=== PATIENT | female | born 1950 | race Caucasian/White ===

== ENCOUNTER 2020-03-07 11:14 | Inpatient (IN) | payer BC, OTHER ==
[~2020-03-07] VITALS: Ht 167.6 cm; Wt 82.5 kg
[2020-03-07] MEDS ORDERED: AZITHROMYCIN 500MG/ 250ML 250 ML IV ONE (14:45)
[2020-03-07] MEDS ORDERED: DexAMETHasone SOD PHOS 10MG/1ML VIAL INJ IV ONE (14:45)
[2020-03-07] MEDS ORDERED: REMDESIVIR PER PHARMACY 0 ML IV SCH (16:30)
[2020-03-07] MEDS ORDERED: MORPHINE SULF INJ 2 MG/ML SYRINGE 1ML IV PRN (16:30)
[2020-03-07] MEDS ORDERED: NITROGLYCERIN 0.4 MG SL TAB SL PRN (16:30)
[2020-03-07] MEDS ORDERED: diphenhdrAMINE HCL 50 MG/1 ML VL IV PRN (16:30)
[2020-03-07] MEDS: levoFLOXacin 500MG 100 ML IV SCH (16:41)
[2020-03-07] MEDS ORDERED: LACTULOSE 20Gm/30ML SOLN PO PRN (16:45)
[2020-03-07] MEDS: SODIUM CHLORIDE 0.9% 1,000 ML IV SCH (16:45)
[2020-03-07] MEDS: BUDESONIDE (INHALATION) 180 MCG IH IN SCH (20:03)
[2020-03-07 20:11] LABS: Basophils # (auto) 0 10 ^3/uL (0-0.2); Basophils % (auto) 0.2 % (0.0-2.0); Eosinophils # (auto) 0 10 ^3/uL (0-0.8); Hematocrit 41.9 % (36.0-46.0); Hemoglobin 14.5 g/dL (12.2-16.2); Lymphocytes # (auto) 0.4 10 ^3/uL (0.4-5.4); Lymphocytes % (auto) 7.2 % (10.0-50.0); Mean Corpuscular Hemoglobin 32.4 pg (28.0-32.0); Mean Corpuscular Hgb Conc. 34.7 g/dL (32.0-36.0); Mean Corpuscular Volume 93.4 fL (80.0-100.0); Monocytes # (auto) 0.3 10 ^3/uL (0-1.3); Monocytes % (auto) 6.1 % (0.0-12.0); Neutrophils # (auto) 4.6 10 ^3/uL (1.6-8.6); Neutrophils % (auto) 86.5 % (37.0-80.0); Nucleated Red Blood Cells % 0.2 %; Platelet Count (auto) 288 10^3/uL (140-450); Red Blood Cells 4.48 10^6/uL (4.0-5.20); Red Cell Distribution Width 13.2 % (11.8-14.3); White Blood Cell 5.3 10^3/uL (4.4-10.8)
[2020-03-07 20:29] LABS: INR 0.98 (0.9-1.15); Partial Thromboplastin Time 29.6 sec (23.0-31.2)
[2020-03-07 20:33] LABS: Albumin 2.9 g/dL (3.4-5.0); Anion Gap 7 (5-15); Blood Urea Nitrogen 10 mg/dL (7-18); Calcium 8.3 mg/dL (8.5-10.1); Carbon Dioxide 27 mmol/L (21-32); Chloride 100 mmol/L (98-107); Glucose 119 mg/dL (74-106); Magnesium 1.9 mg/dL (1.6-2.6); Potassium 3.8 mmol/L (3.5-5.1); Sodium 134 mmol/L (136-145)
[2020-03-07 20:38] LABS: Lactic Acid w/Reflex 2.1 mmol/L (0.4-2.0)
[2020-03-07 20:39] LABS: Alanine Aminotransferase 54 U/L (13-56); Alkaline Phosphatase 151 U/L (45-117); Aspartate Aminotransferase 53 U/L (15-37); BUN/Creatinine Ratio 13.7; Bilirubin, Total 0.2 mg/dL (0.2-1.0); GFR African American 102 mL/min; GFR Non-African American 84 mL/min; Total Protein 7.5 g/dL (6.4-8.2)
[2020-03-07] MEDS ORDERED: FAMOTIDINE 20 MG TAB PO SCH (22:00)
[2020-03-07] MEDS: FAMOTIDINE (10MG/ML) 2ML VL IV SCH (22:52)
[2020-03-07] MEDS: ENOXAPARIN SOD 40 MG/0.4 ML SYRINGE SC SCH (22:53)
[2020-03-07] MEDS ORDERED: LORazepam 2MG/ML-1ML VIAL ONE (23:05)
[2020-03-07] MEDS ORDERED: LORazepam 2MG/ML-1ML VIAL IV ONE (23:15)
[2020-03-08] MEDS: PROMETHAZINE HCL 25 MG/ML 1ML IV PRN (05:24)
[2020-03-08 05:55] LABS: Basophils # (auto) 0 10 ^3/uL (0-0.2); Basophils % (auto) 0.3 % (0.0-2.0); Eosinophils # (auto) 0 10 ^3/uL (0-0.8); Hematocrit 39.3 % (36.0-46.0); Hemoglobin 13.8 g/dL (12.2-16.2); Lymphocytes # (auto) 0.6 10 ^3/uL (0.4-5.4); Lymphocytes % (auto) 13.6 % (10.0-50.0); Mean Corpuscular Hemoglobin 33.1 pg (28.0-32.0); Mean Corpuscular Hgb Conc. 35.2 g/dL (32.0-36.0); Mean Corpuscular Volume 94.1 fL (80.0-100.0); Monocytes # (auto) 0.4 10 ^3/uL (0-1.3); Monocytes % (auto) 8.5 % (0.0-12.0); Neutrophils # (auto) 3.6 10 ^3/uL (1.6-8.6); Neutrophils % (auto) 77.6 % (37.0-80.0); Nucleated Red Blood Cells % 0.1 %; Platelet Count (auto) 298 10^3/uL (140-450); Red Blood Cells 4.17 10^6/uL (4.0-5.20); Red Cell Distribution Width 12.8 % (11.8-14.3); White Blood Cell 4.7 10^3/uL (4.4-10.8)
[2020-03-08 06:18] LABS: Albumin 2.7 g/dL (3.4-5.0); BUN/Creatinine Ratio 13.2; Bilirubin, Total 0.2 mg/dL (0.2-1.0); Calcium 8.4 mg/dL (8.5-10.1); Total Protein 6.8 g/dL (6.4-8.2)
[2020-03-08] MEDS: SODIUM CHLORIDE 0.9% 1,000 ML IV SCH (06:26)
[2020-03-08] MEDS: FAMOTIDINE (10MG/ML) 2ML VL IV SCH ×2 (09:21→23:10)
[2020-03-08] MEDS: levoFLOXacin 500MG 100 ML IV SCH (09:21)
[2020-03-08] MEDS: ASCORBIC ACID 1,000 MG TAB PO SCH (09:22)
[2020-03-08] MEDS: ZINC SULFATE 220mg CAP or TAB PO SCH (09:22)
[2020-03-08] MEDS: CHOLECALCIFEROL (VITD3) 2,000 UNIT CAP/TAB PO SCH (09:22)
[2020-03-08] MEDS: ENOXAPARIN SOD 40 MG/0.4 ML SYRINGE SC SCH ×2 (09:22→23:10)
[2020-03-08] MEDS: DexAMETHasone SOD PHOS 10MG/1ML VIAL INJ IV SCH (09:22)
[2020-03-08] MEDS: BUDESONIDE (INHALATION) 180 MCG IH IN SCH ×2 (10:00→21:04)
[2020-03-08 19:21] VITALS: BP 112/64
[2020-03-08 19:47] VITALS: BP 107/71
[2020-03-08] MEDS ORDERED: REMDESIVIR 200 MG in NS 210ml LOADING DOSE ADULT IV ONE (20:00)
[2020-03-08 20:17] VITALS: BP 114/62
[2020-03-08 21:01] VITALS: BP 95/57
[2020-03-08] MEDS: TEMAZEPAM 15 MG CAP PO PRN (23:09)
[2020-03-09] VITALS: BP 121/70
[2020-03-09 00:35] VITALS: BP 107/71
[2020-03-09 08:00] VITALS: BP 93/55
[2020-03-09 08:22] LABS: Basophils # (auto) 0 10 ^3/uL (0-0.2); Eosinophils # (auto) 0 10 ^3/uL (0-0.8); Hematocrit 39.1 % (36.0-46.0); Hemoglobin 13.6 g/dL (12.2-16.2); Lymphocytes # (auto) 0.8 10 ^3/uL (0.4-5.4); Lymphocytes % (auto) 9.2 % (10.0-50.0); Mean Corpuscular Hemoglobin 32.8 pg (28.0-32.0); Mean Corpuscular Hgb Conc. 34.9 g/dL (32.0-36.0); Mean Corpuscular Volume 93.9 fL (80.0-100.0); Monocytes # (auto) 0.6 10 ^3/uL (0-1.3); Monocytes % (auto) 7.2 % (0.0-12.0); Neutrophils # (auto) 7.1 10 ^3/uL (1.6-8.6); Neutrophils % (auto) 83.6 % (37.0-80.0); Platelet Count (auto) 359 10^3/uL (140-450); Red Blood Cells 4.16 10^6/uL (4.0-5.20); Red Cell Distribution Width 13.4 % (11.8-14.3); White Blood Cell 8.5 10^3/uL (4.4-10.8)
[2020-03-09 08:40] LABS: Albumin 2.4 g/dL (3.4-5.0); BUN/Creatinine Ratio 18.5; Bilirubin, Total 0.2 mg/dL (0.2-1.0); Calcium 8.4 mg/dL (8.5-10.1); Total Protein 6.7 g/dL (6.4-8.2)
[2020-03-09] MEDS: DexAMETHasone SOD PHOS 10MG/1ML VIAL INJ IV SCH (09:55)
[2020-03-09] MEDS: levoFLOXacin 500MG 100 ML IV SCH (09:55)
[2020-03-09] MEDS: ZINC SULFATE 220mg CAP or TAB PO SCH (09:55)
[2020-03-09] MEDS: CHOLECALCIFEROL (VITD3) 2,000 UNIT CAP/TAB PO SCH (09:56)
[2020-03-09] MEDS: PROMETHAZINE HCL 25 MG/ML 1ML IV PRN ×2 (09:56→17:51)
[2020-03-09] MEDS: ENOXAPARIN SOD 40 MG/0.4 ML SYRINGE SC SCH ×2 (09:56→21:52)
[2020-03-09] MEDS: ASCORBIC ACID 1,000 MG TAB PO SCH (09:56)
[2020-03-09] MEDS: BUDESONIDE (INHALATION) 180 MCG IH IN SCH ×2 (10:00→20:30)
[2020-03-09] MEDS: ALBUTEROL SULF HFA 90MCG INH 200DOSE IN PRN ×2 (10:07→20:31)
[2020-03-09 11:39] LABS: CRP High Sensitivity 4.35 mg/dL (< 0.3)
[2020-03-09] MEDS: REMDESIVIR 100 MG in SODIUM CHL 0.9% 250 ML IV SCH (15:31)
[2020-03-09 16:00] VITALS: BP 102/57
[2020-03-09] MEDS: ALPRAZolam 0.25 MG TAB PO PRN (16:07)
[2020-03-09] MEDS: TEMAZEPAM 15 MG CAP PO PRN (20:56)
[2020-03-09] MEDS: FAMOTIDINE (10MG/ML) 2ML VL IV SCH (21:52)
[2020-03-10] VITALS: BP 92/51
[2020-03-10 07:26] LABS: Potassium 3.7 mmol/L (3.5-5.1)
[2020-03-10 07:34] LABS: Albumin 2.5 g/dL (3.4-5.0); BUN/Creatinine Ratio 27.1; Bilirubin, Total 0.3 mg/dL (0.2-1.0); Calcium 8.7 mg/dL (8.5-10.1); Total Protein 6.9 g/dL (6.4-8.2)
[2020-03-10 08:00] VITALS: BP 99/54
[2020-03-10] MEDS: ZINC SULFATE 220mg CAP or TAB PO SCH (10:52)
[2020-03-10] MEDS: BUDESONIDE (INHALATION) 180 MCG IH IN SCH ×2 (10:52→20:04)
[2020-03-10] MEDS: levoFLOXacin 500MG 100 ML IV SCH (10:52)
[2020-03-10] MEDS: DexAMETHasone SOD PHOS 10MG/1ML VIAL INJ IV SCH (10:52)
[2020-03-10] MEDS: ENOXAPARIN SOD 40 MG/0.4 ML SYRINGE SC SCH ×2 (10:53→22:29)
[2020-03-10] MEDS: CHOLECALCIFEROL (VITD3) 2,000 UNIT CAP/TAB PO SCH (10:53)
[2020-03-10] MEDS: ASCORBIC ACID 1,000 MG TAB PO SCH (10:53)
[2020-03-10] MEDS: ALPRAZolam 0.25 MG TAB PO PRN (13:55)
[2020-03-10] MEDS: REMDESIVIR 100 MG in SODIUM CHL 0.9% 250 ML IV SCH (15:05)
[2020-03-10 16:00] VITALS: BP 114/56
[2020-03-10] MEDS: ALBUTEROL SULF HFA 90MCG INH 200DOSE IN PRN (20:05)
[2020-03-10] MEDS: TEMAZEPAM 15 MG CAP PO PRN (20:09)
[2020-03-10] MEDS ORDERED: FUROSEMIDE 20 MG/2 ML VIAL IV ONE (21:00)
[2020-03-10] MEDS ORDERED: POTASSIUM EFFERVESENT TAB 25 MEQ PO ONE (21:00)
[2020-03-10] MEDS: FAMOTIDINE (10MG/ML) 2ML VL IV SCH (22:29)
[2020-03-11] VITALS: BP 101/57
[2020-03-11] MEDS: BUDESONIDE (INHALATION) 180 MCG IH IN SCH ×2 (07:34→22:20)
[2020-03-11 07:53] LABS: Albumin 2.5 g/dL (3.4-5.0); Bilirubin, Total 0.4 mg/dL (0.2-1.0); Calcium 8.5 mg/dL (8.5-10.1); Potassium 3.7 mmol/L (3.5-5.1); Total Protein 6.9 g/dL (6.4-8.2)
[2020-03-11 08:00] VITALS: BP 102/48
[2020-03-11] MEDS: levoFLOXacin 500MG 100 ML IV SCH (10:56)
[2020-03-11] MEDS: DexAMETHasone SOD PHOS 10MG/1ML VIAL INJ IV SCH (10:56)
[2020-03-11] MEDS: FUROSEMIDE 20 MG/2 ML VIAL IV SCH (10:56)
[2020-03-11] MEDS: ZINC SULFATE 220mg CAP or TAB PO SCH (10:56)
[2020-03-11] MEDS: ASCORBIC ACID 1,000 MG TAB PO SCH (10:57)
[2020-03-11] MEDS: ENOXAPARIN SOD 40 MG/0.4 ML SYRINGE SC SCH ×2 (10:57→21:49)
[2020-03-11] MEDS: POTASSIUM EFFERVESENT TAB 25 MEQ PO SCH (10:57)
[2020-03-11] MEDS: CHOLECALCIFEROL (VITD3) 2,000 UNIT CAP/TAB PO SCH (10:57)
[2020-03-11] MEDS: ALPRAZolam 0.25 MG TAB PO PRN (12:40)
[2020-03-11] MEDS: REMDESIVIR 100 MG in SODIUM CHL 0.9% 250 ML IV SCH (15:24)
[2020-03-11 16:00] VITALS: BP 93/57
[2020-03-11] MEDS: traMADol HCL 50 MG TAB PO PRN ×2 (18:04→23:32)
[2020-03-11] MEDS: FAMOTIDINE (10MG/ML) 2ML VL IV SCH (21:49)
[2020-03-11] MEDS: ALBUTEROL SULF HFA 90MCG INH 200DOSE IN PRN (22:15)
[2020-03-12] VITALS: BP 110/59
[2020-03-12] MEDS: BUDESONIDE (INHALATION) 180 MCG IH IN SCH ×2 (06:10→10:21)
[2020-03-12 07:40] LABS: Albumin 2.5 g/dL (3.4-5.0); BUN/Creatinine Ratio 36.1; Bilirubin, Total 0.5 mg/dL (0.2-1.0); Calcium 8.8 mg/dL (8.5-10.1); Total Protein 6.9 g/dL (6.4-8.2)
[2020-03-12 08:00] VITALS: BP 105/55
[2020-03-12] MEDS: DexAMETHasone SOD PHOS 10MG/1ML VIAL INJ IV SCH (10:32)
[2020-03-12] MEDS: FUROSEMIDE 20 MG/2 ML VIAL IV SCH (10:32)
[2020-03-12] MEDS: levoFLOXacin 500MG 100 ML IV SCH (10:33)
[2020-03-12] MEDS: ASCORBIC ACID 1,000 MG TAB PO SCH (10:33)
[2020-03-12] MEDS: ZINC SULFATE 220mg CAP or TAB PO SCH (10:33)
[2020-03-12] MEDS: POTASSIUM EFFERVESENT TAB 25 MEQ PO SCH (10:33)
[2020-03-12] MEDS: ENOXAPARIN SOD 40 MG/0.4 ML SYRINGE SC SCH ×2 (10:35→21:48)
[2020-03-12] MEDS: CHOLECALCIFEROL (VITD3) 2,000 UNIT CAP/TAB PO SCH (10:35)
[2020-03-12] MEDS: traMADol HCL 50 MG TAB PO PRN ×2 (10:50→18:26)
[2020-03-12] MEDS: REMDESIVIR 100 MG in SODIUM CHL 0.9% 250 ML IV SCH (15:15)
[2020-03-12] MEDS: ALPRAZolam 0.25 MG TAB PO PRN (16:12)
[2020-03-12 16:14] VITALS: BP 130/69
[2020-03-12] MEDS: HYOSCYAMINE SULF 0.125 MG ODT TAB PO PRN (18:37)
[2020-03-12 19:55] VITALS: BP 130/69
[2020-03-12] MEDS: FAMOTIDINE (10MG/ML) 2ML VL IV SCH (21:48)
[2020-03-12] MEDS: ACETAMINOPHEN 500 MG TAB PO PRN (21:49)
[2020-03-13] VITALS: BP_SYST 122; BP_SYST 124; BP_DIAS 67
[2020-03-13] MEDS: traMADol HCL 50 MG TAB PO PRN ×3 (00:12→11:02)
[2020-03-13 08:00] VITALS: BP 105/68
[2020-03-13] MEDS: POTASSIUM EFFERVESENT TAB 25 MEQ PO SCH (08:06)
[2020-03-13] MEDS: levoFLOXacin 500MG 100 ML IV SCH (08:06)
[2020-03-13] MEDS: ENOXAPARIN SOD 40 MG/0.4 ML SYRINGE SC SCH ×2 (08:06→20:02)
[2020-03-13] MEDS: ZINC SULFATE 220mg CAP or TAB PO SCH (08:06)
[2020-03-13] MEDS: ASCORBIC ACID 1,000 MG TAB PO SCH (08:06)
[2020-03-13] MEDS: CHOLECALCIFEROL (VITD3) 2,000 UNIT CAP/TAB PO SCH (08:07)
[2020-03-13] MEDS: DexAMETHasone SOD PHOS 10MG/1ML VIAL INJ IV SCH (08:07)
[2020-03-13 08:10] VITALS: BP 105/68
[2020-03-13] MEDS: PROMETHAZINE HCL 25 MG/ML 1ML IV PRN (09:23)
[2020-03-13] MEDS: FUROSEMIDE 20 MG/2 ML VIAL IV SCH (10:00)
[2020-03-13] MEDS: ALBUTEROL SULF HFA 90MCG INH 200DOSE IN PRN ×2 (10:22→20:52)
[2020-03-13] MEDS: BUDESONIDE (INHALATION) 180 MCG IH IN SCH ×2 (10:22→19:07)
[2020-03-13] MEDS: ALPRAZolam 0.25 MG TAB PO PRN (13:32)
[2020-03-13 16:00] VITALS: BP 137/72
[2020-03-13 16:05] LABS: Albumin 2.5 g/dL (3.4-5.0); Potassium 4.3 mmol/L (3.5-5.1)
[2020-03-13 16:08] LABS: BUN/Creatinine Ratio 37.8; Bilirubin, Total 0.5 mg/dL (0.2-1.0); Total Protein 7.2 g/dL (6.4-8.2)
[2020-03-13] MEDS: FAMOTIDINE (10MG/ML) 2ML VL IV SCH (20:01)
[2020-03-13] MEDS: TEMAZEPAM 15 MG CAP PO PRN (20:02)
[2020-03-13] MEDS ORDERED: FUROSEMIDE 20 MG/2 ML VIAL IV SCH (22:00)
[2020-03-14] VITALS: BP 106/82
[2020-03-14] MEDS: ALPRAZolam 0.25 MG TAB PO PRN ×2 (03:02→13:46)
[2020-03-14] MEDS: ALBUTEROL SULF HFA 90MCG INH 200DOSE IN PRN ×2 (07:05→18:46)
[2020-03-14] MEDS: BUDESONIDE (INHALATION) 180 MCG IH IN SCH ×2 (07:05→18:46)
[2020-03-14 07:08] LABS: Basophils # (auto) 0 10 ^3/uL (0-0.2); Basophils % (auto) 0.3 % (0.0-2.0); Eosinophils # (auto) 0 10 ^3/uL (0-0.8); Eosinophils % (auto) 0.2 % (0.0-7.0); Hematocrit 41.4 % (36.0-46.0); Hemoglobin 14.8 g/dL (12.2-16.2); Lymphocytes # (auto) 0.6 10 ^3/uL (0.4-5.4); Lymphocytes % (auto) 5.9 % (10.0-50.0); Mean Corpuscular Hemoglobin 33.1 pg (28.0-32.0); Mean Corpuscular Hgb Conc. 35.7 g/dL (32.0-36.0); Mean Corpuscular Volume 92.9 fL (80.0-100.0); Monocytes # (auto) 0.6 10 ^3/uL (0-1.3); Monocytes % (auto) 5.8 % (0.0-12.0); Neutrophils # (auto) 9.6 10 ^3/uL (1.6-8.6); Neutrophils % (auto) 87.8 % (37.0-80.0); Nucleated Red Blood Cells % 0.1 %; Platelet Count (auto) 447 10^3/uL (140-450); Red Blood Cells 4.46 10^6/uL (4.0-5.20); Red Cell Distribution Width 13.1 % (11.8-14.3); White Blood Cell 10.9 10^3/uL (4.4-10.8)
[2020-03-14 07:41] LABS: BUN/Creatinine Ratio 37.7; Potassium 4.1 mmol/L (3.5-5.1)
[2020-03-14 08:00] VITALS: BP 115/81
[2020-03-14] MEDS: levoFLOXacin 500MG 100 ML IV SCH (11:31)
[2020-03-14] MEDS: ZINC SULFATE 220mg CAP or TAB PO SCH (11:31)
[2020-03-14] MEDS: DexAMETHasone SOD PHOS 10MG/1ML VIAL INJ IV SCH (11:31)
[2020-03-14] MEDS: ENOXAPARIN SOD 40 MG/0.4 ML SYRINGE SC SCH ×2 (11:32→21:08)
[2020-03-14] MEDS: CHOLECALCIFEROL (VITD3) 2,000 UNIT CAP/TAB PO SCH (11:32)
[2020-03-14] MEDS: ASCORBIC ACID 1,000 MG TAB PO SCH (11:32)
[2020-03-14] MEDS: POTASSIUM EFFERVESENT TAB 25 MEQ PO SCH (11:32)
[2020-03-14] MEDS: FUROSEMIDE 40 MG/4 ML VIAL IV SCH ×2 (11:33→21:08)
[2020-03-14] MEDS: traMADol HCL 50 MG TAB PO PRN (15:58)
[2020-03-14 16:00] VITALS: BP 114/78
[2020-03-14] MEDS: FAMOTIDINE (10MG/ML) 2ML VL IV SCH (21:08)
[2020-03-15] VITALS: BP 98/58
[2020-03-15] MEDS: ALPRAZolam 0.25 MG TAB PO PRN ×3 (00:23→20:00)
[2020-03-15] MEDS: BUDESONIDE (INHALATION) 180 MCG IH IN SCH ×2 (06:58→18:53)
[2020-03-15 08:00] VITALS: BP 109/63
[2020-03-15] MEDS: ENOXAPARIN SOD 40 MG/0.4 ML SYRINGE SC SCH ×2 (10:26→21:31)
[2020-03-15] MEDS: POTASSIUM EFFERVESENT TAB 25 MEQ PO SCH (10:26)
[2020-03-15] MEDS: DexAMETHasone SOD PHOS 10MG/1ML VIAL INJ IV SCH (10:26)
[2020-03-15] MEDS: FUROSEMIDE 40 MG/4 ML VIAL IV SCH ×2 (10:26→21:31)
[2020-03-15] MEDS: CHOLECALCIFEROL (VITD3) 2,000 UNIT CAP/TAB PO SCH (10:27)
[2020-03-15] MEDS: levoFLOXacin 500MG 100 ML IV SCH (10:27)
[2020-03-15] MEDS: ZINC SULFATE 220mg CAP or TAB PO SCH (10:27)
[2020-03-15] MEDS: ASCORBIC ACID 1,000 MG TAB PO SCH (10:27)
[2020-03-15] MEDS: MORPHINE SULF INJ 2 MG/ML SYRINGE 1ML IV PRN (12:13)
[2020-03-15 16:00] VITALS: BP 94/61
[2020-03-15] MEDS: ALBUTEROL SULF HFA 90MCG INH 200DOSE IN PRN (18:53)
[2020-03-15] MEDS: TEMAZEPAM 15 MG CAP PO PRN (21:06)
[2020-03-15] MEDS: FAMOTIDINE (10MG/ML) 2ML VL IV SCH (21:31)
[2020-03-15] MEDS: ACETAMINOPHEN 500 MG TAB PO PRN (21:50)
[2020-03-16] VITALS: BP 115/55
[2020-03-16] MEDS: ACETAMINOPHEN 500 MG TAB PO PRN (04:27)
[2020-03-16] MEDS: ALPRAZolam 0.25 MG TAB PO PRN ×2 (04:27→20:09)
[2020-03-16] MEDS: HYOSCYAMINE SULF 0.125 MG ODT TAB PO PRN (04:52)
[2020-03-16 06:20] LABS: Basophils # (auto) 0 10 ^3/uL (0-0.2); Basophils % (auto) 0.1 % (0.0-2.0); Eosinophils # (auto) 0.1 10 ^3/uL (0-0.8); Eosinophils % (auto) 1.2 % (0.0-7.0); Hematocrit 42.3 % (36.0-46.0); Hemoglobin 14.8 g/dL (12.2-16.2); Lymphocytes # (auto) 0.7 10 ^3/uL (0.4-5.4); Lymphocytes % (auto) 7.2 % (10.0-50.0); Mean Corpuscular Hemoglobin 32.4 pg (28.0-32.0); Mean Corpuscular Hgb Conc. 35.1 g/dL (32.0-36.0); Mean Corpuscular Volume 92.3 fL (80.0-100.0); Monocytes # (auto) 0.3 10 ^3/uL (0-1.3); Monocytes % (auto) 2.7 % (0.0-12.0); Neutrophils # (auto) 8.7 10 ^3/uL (1.6-8.6); Neutrophils % (auto) 88.8 % (37.0-80.0); Nucleated Red Blood Cells % 0.1 %; Platelet Count (auto) 443 10^3/uL (140-450); Red Blood Cells 4.58 10^6/uL (4.0-5.20); Red Cell Distribution Width 12.9 % (11.8-14.3); White Blood Cell 9.8 10^3/uL (4.4-10.8)
[2020-03-16 06:44] LABS: Potassium 3.7 mmol/L (3.5-5.1)
[2020-03-16 06:52] LABS: BUN/Creatinine Ratio 41.4; Calcium 8.4 mg/dL (8.5-10.1)
[2020-03-16 08:00] VITALS: BP 134/83
[2020-03-16] MEDS: BUDESONIDE (INHALATION) 180 MCG IH IN SCH ×2 (10:00→19:37)
[2020-03-16] MEDS: DexAMETHasone SOD PHOS 10MG/1ML VIAL INJ IV SCH (10:43)
[2020-03-16] MEDS: FUROSEMIDE 40 MG/4 ML VIAL IV SCH ×2 (10:44→20:43)
[2020-03-16] MEDS: ASCORBIC ACID 1,000 MG TAB PO SCH (10:45)
[2020-03-16] MEDS: levoFLOXacin 500MG 100 ML IV SCH (10:45)
[2020-03-16] MEDS: ZINC SULFATE 220mg CAP or TAB PO SCH (10:45)
[2020-03-16] MEDS: POTASSIUM EFFERVESENT TAB 25 MEQ PO SCH (10:45)
[2020-03-16] MEDS: ENOXAPARIN SOD 40 MG/0.4 ML SYRINGE SC SCH ×2 (10:46→20:09)
[2020-03-16] MEDS: CHOLECALCIFEROL (VITD3) 2,000 UNIT CAP/TAB PO SCH (10:46)
[2020-03-16 16:00] VITALS: BP 100/62
[2020-03-16] MEDS: ALBUTEROL SULF HFA 90MCG INH 200DOSE IN PRN (19:37)
[2020-03-16] MEDS: FAMOTIDINE (10MG/ML) 2ML VL IV SCH (20:08)
[2020-03-16] MEDS: MORPHINE SULF INJ 2 MG/ML SYRINGE 1ML IV PRN (20:43)
[2020-03-16] MEDS: TEMAZEPAM 15 MG CAP PO PRN (21:31)
[2020-03-17] VITALS: BP 98/65
[2020-03-17] MEDS: HYOSCYAMINE SULF 0.125 MG ODT TAB PO PRN (02:57)
[2020-03-17 06:36] LABS: Basophils # (auto) 0 10 ^3/uL (0-0.2); Basophils % (auto) 0.2 % (0.0-2.0); Eosinophils # (auto) 0 10 ^3/uL (0-0.8); Eosinophils % (auto) 0.2 % (0.0-7.0); Hematocrit 39.9 % (36.0-46.0); Hemoglobin 14.2 g/dL (12.2-16.2); Lymphocytes # (auto) 0.7 10 ^3/uL (0.4-5.4); Lymphocytes % (auto) 6.3 % (10.0-50.0); Mean Corpuscular Hgb Conc. 35.6 g/dL (32.0-36.0); Mean Corpuscular Volume 92.7 fL (80.0-100.0); Monocytes # (auto) 0.4 10 ^3/uL (0-1.3); Monocytes % (auto) 4.1 % (0.0-12.0); Neutrophils # (auto) 9.6 10 ^3/uL (1.6-8.6); Neutrophils % (auto) 89.2 % (37.0-80.0); Nucleated Red Blood Cells % 0.1 %; Platelet Count (auto) 407 10^3/uL (140-450); Red Blood Cells 4.31 10^6/uL (4.0-5.20); Red Cell Distribution Width 12.8 % (11.8-14.3); White Blood Cell 10.7 10^3/uL (4.4-10.8)
[2020-03-17 07:03] LABS: BUN/Creatinine Ratio 27.2; Calcium 8.5 mg/dL (8.5-10.1); Potassium 3.8 mmol/L (3.5-5.1)
[2020-03-17] MEDS: ALBUTEROL SULF HFA 90MCG INH 200DOSE IN PRN ×2 (07:41→22:14)
[2020-03-17] MEDS: BUDESONIDE (INHALATION) 180 MCG IH IN SCH ×2 (07:41→22:14)
[2020-03-17 08:00] VITALS: BP 95/44
[2020-03-17] MEDS: levoFLOXacin 500MG 100 ML IV SCH (08:49)
[2020-03-17] MEDS: ZINC SULFATE 220mg CAP or TAB PO SCH (08:50)
[2020-03-17] MEDS: POTASSIUM EFFERVESENT TAB 25 MEQ PO SCH (08:50)
[2020-03-17] MEDS: ASCORBIC ACID 1,000 MG TAB PO SCH (08:50)
[2020-03-17] MEDS: CHOLECALCIFEROL (VITD3) 2,000 UNIT CAP/TAB PO SCH (08:50)
[2020-03-17] MEDS: DexAMETHasone SOD PHOS 10MG/1ML VIAL INJ IV SCH (08:51)
[2020-03-17] MEDS: ENOXAPARIN SOD 40 MG/0.4 ML SYRINGE SC SCH ×2 (08:51→21:47)
[2020-03-17] MEDS: FUROSEMIDE 40 MG/4 ML VIAL IV SCH (10:00)
[2020-03-17 16:00] VITALS: BP 95/56
[2020-03-17] MEDS: ALPRAZolam 0.25 MG TAB PO PRN (20:27)
[2020-03-17 21:00] VITALS: BP 92/56
[2020-03-17] MEDS: FAMOTIDINE (10MG/ML) 2ML VL IV SCH (21:46)
[2020-03-18] VITALS: BP 98/62
[2020-03-18] MEDS: TEMAZEPAM 15 MG CAP PO PRN (01:17)
[2020-03-18] MEDS: BUDESONIDE (INHALATION) 180 MCG IH IN SCH ×2 (07:27→21:59)
[2020-03-18 08:00] VITALS: BP 104/56
[2020-03-18] MEDS: levoFLOXacin 500MG 100 ML IV SCH (08:15)
[2020-03-18] MEDS: ASCORBIC ACID 1,000 MG TAB PO SCH (08:15)
[2020-03-18] MEDS: CHOLECALCIFEROL (VITD3) 2,000 UNIT CAP/TAB PO SCH (08:15)
[2020-03-18] MEDS: ZINC SULFATE 220mg CAP or TAB PO SCH (08:15)
[2020-03-18] MEDS: ENOXAPARIN SOD 40 MG/0.4 ML SYRINGE SC SCH ×2 (08:16→22:00)
[2020-03-18] MEDS: DexAMETHasone SOD PHOS 10MG/1ML VIAL INJ IV SCH (08:16)
[2020-03-18] MEDS: POTASSIUM EFFERVESENT TAB 25 MEQ PO SCH (08:16)
[2020-03-18 16:00] VITALS: BP 105/68
[2020-03-18] MEDS: ALBUTEROL SULF HFA 90MCG INH 200DOSE IN PRN (21:59)
[2020-03-18] MEDS: FAMOTIDINE (10MG/ML) 2ML VL IV SCH (22:00)
[2020-03-18] MEDS: ALPRAZolam 0.25 MG TAB PO PRN (22:09)
[2020-03-19] VITALS: BP 135/74
[2020-03-19] MEDS: TEMAZEPAM 15 MG CAP PO PRN (01:11)
[2020-03-19 08:00] VITALS: BP 103/49
[2020-03-19] MEDS: ALPRAZolam 0.25 MG TAB PO PRN (08:33)
[2020-03-19] MEDS: PROMETHAZINE HCL 25 MG/ML 1ML IV PRN (09:08)
[2020-03-19] MEDS: CHOLECALCIFEROL (VITD3) 2,000 UNIT CAP/TAB PO SCH (09:11)
[2020-03-19] MEDS: ENOXAPARIN SOD 40 MG/0.4 ML SYRINGE SC SCH ×2 (09:11→21:18)
[2020-03-19] MEDS: DexAMETHasone SOD PHOS 10MG/1ML VIAL INJ IV SCH (09:11)
[2020-03-19] MEDS: levoFLOXacin 500 MG TAB PO SCH (09:11)
[2020-03-19] MEDS: HYOSCYAMINE SULF 0.125 MG ODT TAB PO PRN (09:26)
[2020-03-19] MEDS ORDERED: levoFLOXacin 500 MG TAB PO SCH (10:00)
[2020-03-19] MEDS: ALBUTEROL SULF HFA 90MCG INH 200DOSE IN PRN ×2 (10:55→20:53)
[2020-03-19] MEDS: BUDESONIDE (INHALATION) 180 MCG IH IN SCH ×2 (10:55→20:53)
[2020-03-19 16:00] VITALS: BP_SYST 146; BP_SYST 96; BP_DIAS 56; BP_DIAS 58
[2020-03-19] MEDS ORDERED: FUROSEMIDE 20 MG/2 ML VIAL IV ONE (20:00)
[2020-03-19] MEDS: FAMOTIDINE (10MG/ML) 2ML VL IV SCH (21:19)
[2020-03-19] MEDS: ACETAMINOPHEN 500 MG TAB PO PRN (23:42)
[2020-03-20] VITALS: BP 109/63
[2020-03-20] MEDS: ALBUTEROL SULF HFA 90MCG INH 200DOSE IN PRN (06:47)
[2020-03-20] MEDS: BUDESONIDE (INHALATION) 180 MCG IH IN SCH ×2 (06:47→23:41)
[2020-03-20 07:23] LABS: Basophils # (auto) 0 10 ^3/uL (0-0.2); Basophils % (auto) 0.1 % (0.0-2.0); Eosinophils # (auto) 0 10 ^3/uL (0-0.8); Eosinophils % (auto) 0.1 % (0.0-7.0); Mean Corpuscular Hemoglobin 32.4 pg (28.0-32.0); Mean Corpuscular Hgb Conc. 34.6 g/dL (32.0-36.0)
[2020-03-20 07:26] LABS: Hematocrit 38.6 % (36.0-46.0); Hemoglobin 13.4 g/dL (12.2-16.2); Lymphocytes # (auto) 0.7 10 ^3/uL (0.4-5.4); Lymphocytes % (auto) 5.5 % (10.0-50.0); Mean Corpuscular Volume 93.6 fL (80.0-100.0); Monocytes # (auto) 0.6 10 ^3/uL (0-1.3); Monocytes % (auto) 4.5 % (0.0-12.0); Neutrophils # (auto) 12.3 10 ^3/uL (1.6-8.6); Neutrophils % (auto) 89.8 % (37.0-80.0); Nucleated Red Blood Cells % 0.1 %; Platelet Count (auto) 465 10^3/uL (140-450); Red Blood Cells 4.13 10^6/uL (4.0-5.20); Red Cell Distribution Width 13.2 % (11.8-14.3); White Blood Cell 13.6 10^3/uL (4.4-10.8)
[2020-03-20 08:00] VITALS: BP 97/53
[2020-03-20 08:09] LABS: Calcium 8.7 mg/dL (8.5-10.1); Potassium 3.9 mmol/L (3.5-5.1)
[2020-03-20 08:16] LABS: BUN/Creatinine Ratio 29.6
[2020-03-20] MEDS: levoFLOXacin 500 MG TAB PO SCH (09:34)
[2020-03-20] MEDS: FUROSEMIDE 20 MG/2 ML VIAL IV SCH (09:34)
[2020-03-20] MEDS: DexAMETHasone SOD PHOS 10MG/1ML VIAL INJ IV SCH (09:34)
[2020-03-20] MEDS: CHOLECALCIFEROL (VITD3) 2,000 UNIT CAP/TAB PO SCH (09:34)
[2020-03-20] MEDS: ENOXAPARIN SOD 40 MG/0.4 ML SYRINGE SC SCH ×2 (09:35→21:54)
[2020-03-20] MEDS: HYOSCYAMINE SULF 0.125 MG ODT TAB PO PRN (12:01)
[2020-03-20] MEDS ORDERED: CITALOPRAM HYDROBR 20 MG TAB PO ONE (13:00)
[2020-03-20 16:00] VITALS: BP 110/52
[2020-03-20] MEDS: FAMOTIDINE (10MG/ML) 2ML VL IV SCH (21:55)
[2020-03-20] MEDS: TEMAZEPAM 15 MG CAP PO PRN (22:52)
[2020-03-20 23:56] VITALS: BP 125/70
[2020-03-21] VITALS (9 sets, daily range): BP systolic 93–141; BP diastolic 44–82
[2020-03-21] MEDS: DexAMETHasone SOD PHOS 10MG/1ML VIAL INJ IV SCH (08:30)
[2020-03-21] MEDS: POTASSIUM CHL 10 Meq TABLET PO SCH (08:31)
[2020-03-21] MEDS: CITALOPRAM HYDROBR 20 MG TAB PO SCH (08:31)
[2020-03-21] MEDS: FUROSEMIDE 20 MG/2 ML VIAL IV SCH (08:31)
[2020-03-21] MEDS: HYOSCYAMINE SULF 0.125 MG ODT TAB PO PRN ×2 (08:32→23:44)
[2020-03-21] MEDS: CHOLECALCIFEROL (VITD3) 2,000 UNIT CAP/TAB PO SCH (08:32)
[2020-03-21] MEDS: ENOXAPARIN SOD 40 MG/0.4 ML SYRINGE SC SCH ×2 (08:32→21:53)
[2020-03-21 09:49] LABS: Basophils # (auto) 0 10 ^3/uL (0-0.2); Basophils % (auto) 0.3 % (0.0-2.0); Eosinophils # (auto) 0 10 ^3/uL (0-0.8); Eosinophils % (auto) 0.3 % (0.0-7.0); Hemoglobin 13.2 g/dL (12.2-16.2); Lymphocytes # (auto) 0.8 10 ^3/uL (0.4-5.4); Lymphocytes % (auto) 5.2 % (10.0-50.0); Mean Corpuscular Hemoglobin 32.1 pg (28.0-32.0); Mean Corpuscular Hgb Conc. 33.8 g/dL (32.0-36.0); Mean Corpuscular Volume 94.9 fL (80.0-100.0); Monocytes # (auto) 0.4 10 ^3/uL (0-1.3); Monocytes % (auto) 2.6 % (0.0-12.0); Neutrophils # (auto) 13.6 10 ^3/uL (1.6-8.6); Neutrophils % (auto) 91.6 % (37.0-80.0); Platelet Count (auto) 450 10^3/uL (140-450); Red Blood Cells 4.11 10^6/uL (4.0-5.20); Red Cell Distribution Width 12.9 % (11.8-14.3); White Blood Cell 14.8 10^3/uL (4.4-10.8)
[2020-03-21] MEDS: BUDESONIDE (INHALATION) 180 MCG IH IN SCH ×2 (10:00→20:18)
[2020-03-21] MEDS: ALBUTEROL SULF HFA 90MCG INH 200DOSE IN PRN ×2 (14:00→20:18)
[2020-03-21] MEDS: FAMOTIDINE (10MG/ML) 2ML VL IV SCH (21:53)
[2020-03-21] MEDS: MORPHINE SULF INJ 2 MG/ML SYRINGE 1ML IV PRN (21:54)
[2020-03-22] VITALS: BP 115/55
[2020-03-22 08:00] VITALS: BP 122/63
[2020-03-22] MEDS: ALBUTEROL SULF HFA 90MCG INH 200DOSE IN PRN (10:06)
[2020-03-22] MEDS: BUDESONIDE (INHALATION) 180 MCG IH IN SCH ×2 (10:06→18:42)
[2020-03-22] MEDS: CITALOPRAM HYDROBR 20 MG TAB PO SCH (10:16)
[2020-03-22] MEDS: CHOLECALCIFEROL (VITD3) 2,000 UNIT CAP/TAB PO SCH (10:16)
[2020-03-22] MEDS: DexAMETHasone SOD PHOS 10MG/1ML VIAL INJ IV SCH (10:17)
[2020-03-22] MEDS: FUROSEMIDE 20 MG/2 ML VIAL IV SCH (10:17)
[2020-03-22] MEDS: ENOXAPARIN SOD 40 MG/0.4 ML SYRINGE SC SCH ×2 (10:17→21:58)
[2020-03-22] MEDS: POTASSIUM CHL 10 Meq TABLET PO SCH (10:18)
[2020-03-22 15:43] VITALS: BP 101/69
[2020-03-22 16:06] LABS: INR 1.08 (0.9-1.15); Partial Thromboplastin Time 25.6 sec (23.0-31.2)
[2020-03-22] MEDS: MORPHINE SULF INJ 2 MG/ML SYRINGE 1ML IV PRN (16:53)
[2020-03-22] MEDS ORDERED: IVERMECTIN 3 MG TAB PO ONE (17:00)
[2020-03-22] MEDS: FAMOTIDINE (10MG/ML) 2ML VL IV SCH (21:59)
[2020-03-23] VITALS: BP 113/55
[2020-03-23] MEDS: MORPHINE SULF INJ 2 MG/ML SYRINGE 1ML IV PRN ×4 (01:53→20:40)
[2020-03-23 05:58] LABS: Basophils # (auto) 0 10 ^3/uL (0-0.2); Basophils % (auto) 0.2 % (0.0-2.0); Eosinophils # (auto) 0 10 ^3/uL (0-0.8); Hematocrit 35.9 % (36.0-46.0); Hemoglobin 12.7 g/dL (12.2-16.2); Lymphocytes # (auto) 0.8 10 ^3/uL (0.4-5.4); Lymphocytes % (auto) 7.3 % (10.0-50.0); Mean Corpuscular Hemoglobin 33.2 pg (28.0-32.0); Mean Corpuscular Hgb Conc. 35.3 g/dL (32.0-36.0); Mean Corpuscular Volume 93.9 fL (80.0-100.0); Monocytes # (auto) 0.4 10 ^3/uL (0-1.3); Monocytes % (auto) 3.7 % (0.0-12.0); Neutrophils # (auto) 9.6 10 ^3/uL (1.6-8.6); Neutrophils % (auto) 88.8 % (37.0-80.0); Nucleated Red Blood Cells % 0.1 %; Platelet Count (auto) 422 10^3/uL (140-450); Red Blood Cells 3.82 10^6/uL (4.0-5.20); Red Cell Distribution Width 13.1 % (11.8-14.3); White Blood Cell 10.8 10^3/uL (4.4-10.8)
[2020-03-23 06:17] LABS: Calcium 9.1 mg/dL (8.5-10.1); Potassium 4.1 mmol/L (3.5-5.1)
[2020-03-23] MEDS: BUDESONIDE (INHALATION) 180 MCG IH IN SCH ×2 (06:25→19:29)
[2020-03-23 08:00] VITALS: BP 91/58
[2020-03-23] MEDS: DexAMETHasone SOD PHOS 10MG/1ML VIAL INJ IV SCH (09:11)
[2020-03-23] MEDS: CITALOPRAM HYDROBR 20 MG TAB PO SCH (09:11)
[2020-03-23] MEDS: FUROSEMIDE 20 MG/2 ML VIAL IV SCH (09:11)
[2020-03-23] MEDS: POTASSIUM CHL 10 Meq TABLET PO SCH (09:12)
[2020-03-23] MEDS: ENOXAPARIN SOD 40 MG/0.4 ML SYRINGE SC SCH ×2 (09:12→20:41)
[2020-03-23] MEDS: CHOLECALCIFEROL (VITD3) 2,000 UNIT CAP/TAB PO SCH (09:12)
[2020-03-23] MEDS: PROMETHAZINE HCL 25 MG/ML 1ML IV PRN ×3 (09:24→20:41)
[2020-03-23] MEDS ORDERED: LIDOCAINE 1% (LOCAL ANESTH.) PF 5ml SDV ID ONE (11:30)
[2020-03-23 16:00] VITALS: BP 105/61
[2020-03-23] MEDS: ALBUTEROL SULF HFA 90MCG INH 200DOSE IN PRN (19:30)
[2020-03-23] MEDS: FAMOTIDINE (10MG/ML) 2ML VL IV SCH (20:41)
[2020-03-23] MEDS: SODIUM CHLOR 0.9% PF (SALINE LOCK) 10ML VIAL/SYR IV SCH (20:41)
[2020-03-24] VITALS: BP 115/72
[2020-03-24] MEDS: MORPHINE SULF INJ 2 MG/ML SYRINGE 1ML IV PRN ×4 (00:54→17:54)
[2020-03-24] MEDS: PROMETHAZINE HCL 25 MG/ML 1ML IV PRN ×4 (00:54→17:54)
[2020-03-24 06:30] LABS: Basophils # (auto) 0 10 ^3/uL (0-0.2); Basophils % (auto) 0.2 % (0.0-2.0); Eosinophils # (auto) 0 10 ^3/uL (0-0.8); Eosinophils % (auto) 0.1 % (0.0-7.0); Hematocrit 38.2 % (36.0-46.0); Hemoglobin 13.2 g/dL (12.2-16.2); Lymphocytes # (auto) 0.6 10 ^3/uL (0.4-5.4); Mean Corpuscular Hemoglobin 32.6 pg (28.0-32.0); Mean Corpuscular Hgb Conc. 34.6 g/dL (32.0-36.0); Mean Corpuscular Volume 94.2 fL (80.0-100.0); Monocytes # (auto) 0.5 10 ^3/uL (0-1.3); Neutrophils # (auto) 9.2 10 ^3/uL (1.6-8.6); Neutrophils % (auto) 88.7 % (37.0-80.0); Platelet Count (auto) 449 10^3/uL (140-450); Red Blood Cells 4.06 10^6/uL (4.0-5.20); Red Cell Distribution Width 13.2 % (11.8-14.3); White Blood Cell 10.3 10^3/uL (4.4-10.8)
[2020-03-24] MEDS: BUDESONIDE (INHALATION) 180 MCG IH IN SCH ×2 (06:41→19:25)
[2020-03-24] MEDS: ALBUTEROL SULF HFA 90MCG INH 200DOSE IN PRN (06:42)
[2020-03-24 06:54] LABS: Potassium 4.4 mmol/L (3.5-5.1)
[2020-03-24 07:10] LABS: BUN/Creatinine Ratio 55.1; CRP High Sensitivity 16.9 mg/dL (< 0.3); Calcium 9.5 mg/dL (8.5-10.1)
[2020-03-24 08:00] VITALS: BP 104/62
[2020-03-24] MEDS: CHOLECALCIFEROL (VITD3) 2,000 UNIT CAP/TAB PO SCH (10:00)
[2020-03-24] MEDS: POTASSIUM CHL 10 Meq TABLET PO SCH (10:00)
[2020-03-24] MEDS: CITALOPRAM HYDROBR 20 MG TAB PO SCH (10:00)
[2020-03-24] MEDS: SODIUM CHLOR 0.9% PF (SALINE LOCK) 10ML VIAL/SYR IV SCH ×2 (11:10→22:24)
[2020-03-24] MEDS: ENOXAPARIN SOD 40 MG/0.4 ML SYRINGE SC SCH ×2 (11:10→22:17)
[2020-03-24] MEDS: FUROSEMIDE 20 MG/2 ML VIAL IV SCH (11:59)
[2020-03-24] MEDS ORDERED: TPN PER PHARMACY 0 ML IV SCH (12:45)
[2020-03-24 16:00] VITALS: BP 98/50
[2020-03-24] MEDS ORDERED: PPN PER PHARMACY IV NR ×5 (20:00)
[2020-03-24] MEDS: FAMOTIDINE (10MG/ML) 2ML VL IV SCH (22:17)
[2020-03-25] MEDS ORDERED: DEXTROSE (50%) 50ML SYRG IV SCH
[2020-03-25] MEDS: ACCU-CHEK COMFORT CURVE STRIP VI SCH ×4 (00:07→18:02)
[2020-03-25] MEDS: InsuLIN REG 1unit/0.01ml Soln (100units/ml) SC SCH ×4 (00:12→18:13)
[2020-03-25] MEDS: MORPHINE SULF INJ 2 MG/ML SYRINGE 1ML IV PRN ×4 (00:27→19:08)
[2020-03-25 00:30] VITALS: BP 120/70
[2020-03-25] MEDS: BUDESONIDE (INHALATION) 180 MCG IH IN SCH ×2 (05:52→19:04)
[2020-03-25 06:02] LABS: Basophils # (auto) 0 10 ^3/uL (0-0.2); Basophils % (auto) 0.4 % (0.0-2.0); Eosinophils # (auto) 0.1 10 ^3/uL (0-0.8); Eosinophils % (auto) 0.7 % (0.0-7.0); Hematocrit 38.9 % (36.0-46.0); Hemoglobin 13.4 g/dL (12.2-16.2); Lymphocytes # (auto) 0.6 10 ^3/uL (0.4-5.4); Lymphocytes % (auto) 5.9 % (10.0-50.0); Mean Corpuscular Hemoglobin 32.7 pg (28.0-32.0); Mean Corpuscular Hgb Conc. 34.5 g/dL (32.0-36.0); Mean Corpuscular Volume 94.8 fL (80.0-100.0); Monocytes # (auto) 0.4 10 ^3/uL (0-1.3); Monocytes % (auto) 3.4 % (0.0-12.0); Neutrophils # (auto) 9.4 10 ^3/uL (1.6-8.6); Neutrophils % (auto) 89.6 % (37.0-80.0); Nucleated Red Blood Cells % 0.1 %; Platelet Count (auto) 441 10^3/uL (140-450); Red Blood Cells 4.11 10^6/uL (4.0-5.20); Red Cell Distribution Width 13.3 % (11.8-14.3); White Blood Cell 10.5 10^3/uL (4.4-10.8)
[2020-03-25 06:32] LABS: Potassium 3.5 mmol/L (3.5-5.1)
[2020-03-25 07:02] LABS: BUN/Creatinine Ratio 69.2; Bilirubin, Total 0.4 mg/dL (0.2-1.0); Magnesium 2.7 mg/dL (1.6-2.6); Phosphorus 4.3 mg/dL (2.5-4.90); Pre Albumin 13.7 mg/dL (20.0-40.0); Total Protein 7.8 g/dL (6.4-8.2)
[2020-03-25 08:00] VITALS: BP 120/69
[2020-03-25] MEDS: PROMETHAZINE HCL 25 MG/ML 1ML IV PRN ×3 (09:22→19:08)
[2020-03-25] MEDS: POTASSIUM CHL 10 Meq TABLET PO SCH (10:00)
[2020-03-25] MEDS: CITALOPRAM HYDROBR 20 MG TAB PO SCH (10:00)
[2020-03-25] MEDS: CHOLECALCIFEROL (VITD3) 2,000 UNIT CAP/TAB PO SCH (10:00)
[2020-03-25] MEDS: FUROSEMIDE 20 MG/2 ML VIAL IV SCH (10:49)
[2020-03-25] MEDS: ENOXAPARIN SOD 40 MG/0.4 ML SYRINGE SC SCH ×2 (10:49→21:37)
[2020-03-25] MEDS: SODIUM CHLOR 0.9% PF (SALINE LOCK) 10ML VIAL/SYR IV SCH ×2 (10:49→22:13)
[2020-03-25] MEDS: ACETAMINOPHEN 650 mg PER 20.3 mL UD PO SCH (11:30)
[2020-03-25] MEDS: methylPREDNISolone SOD SUCC 40 MG/ML VL IV SCH (12:14)
[2020-03-25] MEDS: diphenhdrAMINE HCL 50 MG/1 ML VL IV SCH (12:14)
[2020-03-25] MEDS: TOCILIZUMAB 400 MG in SODIUM CHL 0.9% 80 ML IV SCH (13:01)
[2020-03-25 16:00] VITALS: BP 120/70
[2020-03-25] MEDS ORDERED: PPN PER PHARMACY IV NR ×6 (20:00)
[2020-03-25] MEDS: HYOSCYAMINE SULF 0.125 MG ODT TAB PO PRN (20:17)
[2020-03-25] MEDS: FAMOTIDINE (10MG/ML) 2ML VL IV SCH (21:37)
[2020-03-25] MEDS: TEMAZEPAM 15 MG CAP PO PRN (23:24)
[2020-03-26] VITALS: BP 126/77
[2020-03-26] MEDS: ACCU-CHEK COMFORT CURVE STRIP VI SCH ×5 (00:02→23:57)
[2020-03-26] MEDS: InsuLIN REG 1unit/0.01ml Soln (100units/ml) SC SCH ×5 (00:07→23:57)
[2020-03-26] MEDS: BUDESONIDE (INHALATION) 180 MCG IH IN SCH ×2 (06:04→18:35)
[2020-03-26 06:51] LABS: Basophils # (auto) 0 10 ^3/uL (0-0.2); Basophils % (auto) 0.3 % (0.0-2.0); Eosinophils # (auto) 0 10 ^3/uL (0-0.8); Eosinophils % (auto) 0.1 % (0.0-7.0); Hematocrit 39.2 % (36.0-46.0); Hemoglobin 13.5 g/dL (12.2-16.2); Lymphocytes # (auto) 0.6 10 ^3/uL (0.4-5.4); Lymphocytes % (auto) 4.9 % (10.0-50.0); Mean Corpuscular Hemoglobin 32.5 pg (28.0-32.0); Mean Corpuscular Hgb Conc. 34.5 g/dL (32.0-36.0); Mean Corpuscular Volume 94.2 fL (80.0-100.0); Monocytes # (auto) 0.4 10 ^3/uL (0-1.3); Monocytes % (auto) 3.3 % (0.0-12.0); Neutrophils # (auto) 11.1 10 ^3/uL (1.6-8.6); Neutrophils % (auto) 91.4 % (37.0-80.0); Nucleated Red Blood Cells % 0.1 %; Platelet Count (auto) 356 10^3/uL (140-450); Red Blood Cells 4.16 10^6/uL (4.0-5.20); Red Cell Distribution Width 13.3 % (11.8-14.3); White Blood Cell 12.1 10^3/uL (4.4-10.8)
[2020-03-26 06:59] LABS: Potassium 3.6 mmol/L (3.5-5.1)
[2020-03-26 07:04] LABS: Albumin 2.1 g/dL (3.4-5.0); BUN/Creatinine Ratio 67.1; Bilirubin, Total 0.3 mg/dL (0.2-1.0); Calcium 9.3 mg/dL (8.5-10.1); Magnesium 2.8 mg/dL (1.6-2.6); Phosphorus 3.5 mg/dL (2.5-4.90); Total Protein 7.9 g/dL (6.4-8.2)
[2020-03-26 07:38] VITALS: BP 110/59
[2020-03-26] MEDS: ACETAMINOPHEN 650 mg PER 20.3 mL UD PO SCH (10:33)
[2020-03-26] MEDS: diphenhdrAMINE HCL 50 MG/1 ML VL IV SCH (10:33)
[2020-03-26] MEDS: methylPREDNISolone SOD SUCC 40 MG/ML VL IV SCH (10:33)
[2020-03-26] MEDS: SODIUM CHLOR 0.9% PF (SALINE LOCK) 10ML VIAL/SYR IV SCH ×2 (10:34→21:13)
[2020-03-26] MEDS: FUROSEMIDE 20 MG/2 ML VIAL IV SCH (10:34)
[2020-03-26] MEDS: CHOLECALCIFEROL (VITD3) 2,000 UNIT CAP/TAB PO SCH (10:35)
[2020-03-26] MEDS: POTASSIUM CHL 10 Meq TABLET PO SCH (10:35)
[2020-03-26] MEDS: ENOXAPARIN SOD 40 MG/0.4 ML SYRINGE SC SCH ×2 (10:35→21:13)
[2020-03-26] MEDS: CITALOPRAM HYDROBR 20 MG TAB PO SCH (10:35)
[2020-03-26] MEDS: TOCILIZUMAB 400 MG in SODIUM CHL 0.9% 80 ML IV SCH (12:30)
[2020-03-26] MEDS: PROMETHAZINE HCL 25 MG/ML 1ML IV PRN (12:30)
[2020-03-26] MEDS: ALPRAZolam 0.25 MG TAB PO PRN (14:07)
[2020-03-26] MEDS ORDERED: POTASSIUM CHL 20MEQ/100ML 100 ML IV ONE (14:45)
[2020-03-26 15:53] VITALS: BP 126/77
[2020-03-26] MEDS: MORPHINE SULF INJ 2 MG/ML SYRINGE 1ML IV PRN (18:16)
[2020-03-26] MEDS ORDERED: PPN PER PHARMACY IV NR ×8 (20:00)
[2020-03-26] MEDS: FAMOTIDINE (10MG/ML) 2ML VL IV SCH (21:13)
[2020-03-26] MEDS: TEMAZEPAM 15 MG CAP PO PRN (22:06)
[2020-03-27] VITALS: BP 113/69
[2020-03-27] MEDS: MORPHINE SULF INJ 2 MG/ML SYRINGE 1ML IV PRN ×3 (04:52→23:36)
[2020-03-27] MEDS: ACCU-CHEK COMFORT CURVE STRIP VI SCH ×4 (05:30→23:51)
[2020-03-27] MEDS: InsuLIN REG 1unit/0.01ml Soln (100units/ml) SC SCH ×4 (05:30→23:51)
[2020-03-27 06:09] LABS: Basophils # (auto) 0 10 ^3/uL (0-0.2); Basophils % (auto) 0.2 % (0.0-2.0); Eosinophils # (auto) 0.1 10 ^3/uL (0-0.8); Eosinophils % (auto) 1.2 % (0.0-7.0); Hematocrit 38.5 % (36.0-46.0); Lymphocytes # (auto) 0.8 10 ^3/uL (0.4-5.4); Mean Corpuscular Hemoglobin 31.9 pg (28.0-32.0); Mean Corpuscular Hgb Conc. 33.7 g/dL (32.0-36.0); Mean Corpuscular Volume 94.8 fL (80.0-100.0); Monocytes # (auto) 0.3 10 ^3/uL (0-1.3); Monocytes % (auto) 2.9 % (0.0-12.0); Neutrophils # (auto) 10.1 10 ^3/uL (1.6-8.6); Neutrophils % (auto) 88.7 % (37.0-80.0); Platelet Count (auto) 281 10^3/uL (140-450); Red Blood Cells 4.06 10^6/uL (4.0-5.20); Red Cell Distribution Width 13.2 % (11.8-14.3); White Blood Cell 11.3 10^3/uL (4.4-10.8)
[2020-03-27 06:26] LABS: Potassium 3.7 mmol/L (3.5-5.1)
[2020-03-27 06:38] LABS: Bilirubin, Total 0.3 mg/dL (0.2-1.0); Calcium 8.7 mg/dL (8.5-10.1); Magnesium 2.4 mg/dL (1.6-2.6); Phosphorus 3.1 mg/dL (2.5-4.90); Total Protein 7.2 g/dL (6.4-8.2)
[2020-03-27] MEDS: BUDESONIDE (INHALATION) 180 MCG IH IN SCH ×2 (06:45→22:29)
[2020-03-27 08:00] VITALS: BP 117/72
[2020-03-27] MEDS: SODIUM CHLOR 0.9% PF (SALINE LOCK) 10ML VIAL/SYR IV SCH ×2 (09:03→22:30)
[2020-03-27] MEDS: FUROSEMIDE 20 MG/2 ML VIAL IV SCH (09:03)
[2020-03-27] MEDS: CITALOPRAM HYDROBR 20 MG TAB PO SCH (10:00)
[2020-03-27] MEDS: CHOLECALCIFEROL (VITD3) 2,000 UNIT CAP/TAB PO SCH (10:00)
[2020-03-27] MEDS: LORazepam 2MG/ML-1ML VIAL IV PRN ×2 (11:50→19:11)
[2020-03-27] MEDS: ENOXAPARIN SOD 40 MG/0.4 ML SYRINGE SC SCH ×2 (15:23→22:30)
[2020-03-27 16:00] VITALS: BP 97/72
[2020-03-27] MEDS ORDERED: PPN PER PHARMACY IV NR ×7 (20:00)
[2020-03-27] MEDS: ALBUTEROL SULF HFA 90MCG INH 200DOSE IN PRN (22:29)
[2020-03-27] MEDS: FAMOTIDINE (10MG/ML) 2ML VL IV SCH (22:30)
[2020-03-27] MEDS: TEMAZEPAM 15 MG CAP PO PRN (23:37)
[2020-03-28 00:26] VITALS: BP 97/70
[2020-03-28] MEDS: LORazepam 2MG/ML-1ML VIAL IV PRN ×3 (02:26→18:42)
[2020-03-28] MEDS: InsuLIN REG 1unit/0.01ml Soln (100units/ml) SC SCH ×4 (06:00→23:43)
[2020-03-28 06:14] LABS: Basophils # (auto) 0 10 ^3/uL (0-0.2); Basophils % (auto) 0.3 % (0.0-2.0); Eosinophils # (auto) 0.5 10 ^3/uL (0-0.8); Eosinophils % (auto) 5.7 % (0.0-7.0); Hematocrit 41.1 % (36.0-46.0); Hemoglobin 14.3 g/dL (12.2-16.2); Lymphocytes # (auto) 0.9 10 ^3/uL (0.4-5.4); Lymphocytes % (auto) 9.7 % (10.0-50.0); Mean Corpuscular Hemoglobin 33.1 pg (28.0-32.0); Mean Corpuscular Hgb Conc. 34.9 g/dL (32.0-36.0); Mean Corpuscular Volume 94.9 fL (80.0-100.0); Monocytes # (auto) 0.2 10 ^3/uL (0-1.3); Monocytes % (auto) 2.4 % (0.0-12.0); Neutrophils # (auto) 7.4 10 ^3/uL (1.6-8.6); Neutrophils % (auto) 81.9 % (37.0-80.0); Nucleated Red Blood Cells % 0.1 %; Platelet Count (auto) 273 10^3/uL (140-450); Red Blood Cells 4.33 10^6/uL (4.0-5.20)
[2020-03-28] MEDS: ACCU-CHEK COMFORT CURVE STRIP VI SCH ×4 (06:16→23:43)
[2020-03-28 06:24] LABS: Potassium 3.7 mmol/L (3.5-5.1)
[2020-03-28 06:30] LABS: Albumin 2.1 g/dL (3.4-5.0); Bilirubin, Total 0.3 mg/dL (0.2-1.0); Calcium 8.8 mg/dL (8.5-10.1); Magnesium 2.3 mg/dL (1.6-2.6); Phosphorus 3.4 mg/dL (2.5-4.90); Total Protein 7.3 g/dL (6.4-8.2)
[2020-03-28] MEDS: BUDESONIDE (INHALATION) 180 MCG IH IN SCH (07:00)
[2020-03-28] MEDS: diphenhdrAMINE HCL 50 MG/1 ML VL IV PRN ×3 (07:03→22:39)
[2020-03-28 08:00] VITALS: BP 98/60
[2020-03-28] MEDS: ALBUTEROL SULF HFA 90MCG INH 200DOSE IN PRN (09:19)
[2020-03-28] MEDS: CITALOPRAM HYDROBR 20 MG TAB PO SCH (10:00)
[2020-03-28] MEDS: FUROSEMIDE 20 MG/2 ML VIAL IV SCH (10:00)
[2020-03-28] MEDS: CHOLECALCIFEROL (VITD3) 2,000 UNIT CAP/TAB PO SCH (10:00)
[2020-03-28] MEDS: ENOXAPARIN SOD 40 MG/0.4 ML SYRINGE SC SCH ×2 (13:28→21:41)
[2020-03-28] MEDS: MORPHINE SULF INJ 2 MG/ML SYRINGE 1ML IV PRN ×2 (13:43→20:05)
[2020-03-28 16:00] VITALS: BP 115/75
[2020-03-28] MEDS: SODIUM CHLOR 0.9% PF (SALINE LOCK) 10ML VIAL/SYR IV SCH ×2 (18:42→21:41)
[2020-03-28] MEDS ORDERED: PPN PER PHARMACY IV NR ×8 (20:00)
[2020-03-28] MEDS: FAMOTIDINE (10MG/ML) 2ML VL IV SCH (21:41)
[2020-03-29] VITALS: BP 99/66
[2020-03-29] MEDS: LORazepam 2MG/ML-1ML VIAL IV PRN ×4 (01:36→22:13)
[2020-03-29] MEDS: ACCU-CHEK COMFORT CURVE STRIP VI SCH ×4 (05:29→23:11)
[2020-03-29] MEDS: InsuLIN REG 1unit/0.01ml Soln (100units/ml) SC SCH ×4 (05:29→23:11)
[2020-03-29] MEDS: BUDESONIDE (INHALATION) 180 MCG IH IN SCH ×2 (06:23→18:48)
[2020-03-29] MEDS ORDERED: HALOPERIDOL LACTATE 5 MG/ML INJ VIAL ONE (07:10)
[2020-03-29] MEDS ORDERED: HALOPERIDOL LACTATE 5 MG/ML INJ VIAL IM ONE (07:45)
[2020-03-29 08:00] VITALS: BP 95/65
[2020-03-29] MEDS: FUROSEMIDE 20 MG/2 ML VIAL IV SCH (09:22)
[2020-03-29] MEDS: SODIUM CHLOR 0.9% PF (SALINE LOCK) 10ML VIAL/SYR IV SCH ×2 (09:22→22:13)
[2020-03-29] MEDS: ENOXAPARIN SOD 40 MG/0.4 ML SYRINGE SC SCH ×2 (09:23→22:14)
[2020-03-29] MEDS: CITALOPRAM HYDROBR 20 MG TAB PO SCH (09:23)
[2020-03-29] MEDS: CHOLECALCIFEROL (VITD3) 2,000 UNIT CAP/TAB PO SCH (09:23)
[2020-03-29 11:00] LABS: Hematocrit 44.5 % (36.0-46.0); Hemoglobin 15.1 g/dL (12.2-16.2); Mean Corpuscular Hemoglobin 32.1 pg (28.0-32.0); Mean Corpuscular Volume 94.6 fL (80.0-100.0); Platelet Count (auto) 223 10^3/uL (140-450); Red Cell Distribution Width 13.2 % (11.8-14.3); White Blood Cell 10.3 10^3/uL (4.4-10.8)
[2020-03-29 11:01] LABS: Albumin 2.3 g/dL (3.4-5.0); Calcium 8.9 mg/dL (8.5-10.1); Magnesium 2.4 mg/dL (1.6-2.6); Potassium 3.4 mmol/L (3.5-5.1)
[2020-03-29 11:03] LABS: Basophils % (manual) 0 (0.0-2.0); Blast Cells 0; Metamyelocytes % 0; Myelocytes % 0; Promyelocytes % 0; Reactive Lymphocytes 0
[2020-03-29 11:07] LABS: BUN/Creatinine Ratio 53.5; Bilirubin, Total 0.4 mg/dL (0.2-1.0); Phosphorus 2.9 mg/dL (2.5-4.90); Total Protein 7.4 g/dL (6.4-8.2)
[2020-03-29 13:00] LABS: Band Neutrophils % (manual) 5; Eosinophils % (manual) 7 (0-7); Lymphocytes % (manual) 6 (10.0-50.0); Monocytes % (manual) 2 (0-12)
[2020-03-29] MEDS: POTASSIUM CHL 20MEQ/100ML 100 ML IV SCH ×2 (14:02→15:45)
[2020-03-29 16:00] VITALS: BP 92/67
[2020-03-29] MEDS: MORPHINE SULF INJ 2 MG/ML SYRINGE 1ML IV PRN (16:22)
[2020-03-29] MEDS: diphenhdrAMINE HCL 50 MG/1 ML VL IV PRN (19:54)
[2020-03-29] MEDS ORDERED: PPN PER PHARMACY IV NR ×10 (20:00)
[2020-03-29] MEDS: FAMOTIDINE (10MG/ML) 2ML VL IV SCH (22:13)
[2020-03-30] VITALS: BP 107/68
[2020-03-30] MEDS: MORPHINE SULF INJ 2 MG/ML SYRINGE 1ML IV PRN ×4 (00:22→19:08)
[2020-03-30] MEDS: diphenhdrAMINE HCL 50 MG/1 ML VL IV PRN (01:36)
[2020-03-30] MEDS: LORazepam 2MG/ML-1ML VIAL IV PRN ×4 (04:08→21:55)
[2020-03-30] MEDS: InsuLIN REG 1unit/0.01ml Soln (100units/ml) SC SCH ×4 (06:00→23:47)
[2020-03-30] MEDS ORDERED: SUCCINYLCHOLINE CHLORIDE 20 MG/ML 10ML VIAL IV ONE (06:01)
[2020-03-30] MEDS ORDERED: ETOMIDATE (2MG/ML) 20ML VIAL IV ONE (06:01)
[2020-03-30] MEDS ORDERED: HALOPERIDOL LACTATE 5 MG/ML INJ VIAL ONE (06:02)
[2020-03-30] MEDS: ACCU-CHEK COMFORT CURVE STRIP VI SCH ×4 (06:46→23:46)
[2020-03-30] MEDS ORDERED: HALOPERIDOL LACTATE 5 MG/ML INJ VIAL IM ONE (07:45)
[2020-03-30] MEDS ORDERED: LORazepam 2MG/ML-1ML VIAL IM ONE (07:45)
[2020-03-30 08:00] VITALS: BP 101/67
[2020-03-30] MEDS ORDERED: LORazepam 2MG/ML-1ML VIAL IV ONE (08:00)
[2020-03-30] MEDS: BUDESONIDE (INHALATION) 180 MCG IH IN SCH ×2 (08:00→18:55)
[2020-03-30 09:00] LABS: Basophils # (auto) 0 10 ^3/uL (0-0.2); Basophils % (auto) 0.3 % (0.0-2.0); Eosinophils # (auto) 0.5 10 ^3/uL (0-0.8); Eosinophils % (auto) 4.2 % (0.0-7.0); Hematocrit 43.5 % (36.0-46.0); Hemoglobin 14.4 g/dL (12.2-16.2); Lymphocytes # (auto) 0.5 10 ^3/uL (0.4-5.4); Lymphocytes % (auto) 4.2 % (10.0-50.0); Mean Corpuscular Hemoglobin 31.4 pg (28.0-32.0); Mean Corpuscular Hgb Conc. 33.2 g/dL (32.0-36.0); Mean Corpuscular Volume 94.6 fL (80.0-100.0); Monocytes # (auto) 0.2 10 ^3/uL (0-1.3); Monocytes % (auto) 1.8 % (0.0-12.0); Neutrophils # (auto) 11.3 10 ^3/uL (1.6-8.6); Neutrophils % (auto) 89.5 % (37.0-80.0); Platelet Count (auto) 218 10^3/uL (140-450); Red Cell Distribution Width 13.1 % (11.8-14.3); White Blood Cell 12.6 10^3/uL (4.4-10.8)
[2020-03-30 09:17] LABS: Albumin 2.3 g/dL (3.4-5.0); Calcium 8.4 mg/dL (8.5-10.1); Magnesium 2.3 mg/dL (1.6-2.6); Potassium 4.1 mmol/L (3.5-5.1)
[2020-03-30 09:19] LABS: BUN/Creatinine Ratio 44.6; Bilirubin, Total 0.3 mg/dL (0.2-1.0); Phosphorus 2.7 mg/dL (2.5-4.90); Total Protein 6.8 g/dL (6.4-8.2)
[2020-03-30] MEDS: SODIUM CHLOR 0.9% PF (SALINE LOCK) 10ML VIAL/SYR IV SCH ×2 (10:00→22:16)
[2020-03-30] MEDS: CITALOPRAM HYDROBR 20 MG TAB PO SCH (10:00)
[2020-03-30] MEDS: CHOLECALCIFEROL (VITD3) 2,000 UNIT CAP/TAB PO SCH (10:00)
[2020-03-30] MEDS: FUROSEMIDE 20 MG/2 ML VIAL IV SCH (10:53)
[2020-03-30] MEDS: ENOXAPARIN SOD 40 MG/0.4 ML SYRINGE SC SCH ×2 (10:53→22:16)
[2020-03-30] MEDS: ALBUTEROL SULF HFA 90MCG INH 200DOSE IN PRN ×2 (10:56→18:55)
[2020-03-30 16:00] VITALS: BP 105/67
[2020-03-30] MEDS ORDERED: PPN PER PHARMACY IV NR ×10 (20:00)
[2020-03-30] MEDS ORDERED: TPN PER PHARMACY IV NR ×10 (20:00)
[2020-03-30] MEDS: FAMOTIDINE (10MG/ML) 2ML VL IV SCH (22:16)
[2020-03-31] VITALS: BP 95/68
[2020-03-31] MEDS ORDERED: HALOPERIDOL LACTATE 5 MG/ML INJ VIAL ONE ×2 (01:06→21:46)
[2020-03-31] MEDS ORDERED: HALOPERIDOL LACTATE 5 MG/ML INJ VIAL IM ONE ×2 (01:15→22:00)
[2020-03-31] MEDS: LORazepam 2MG/ML-1ML VIAL IV PRN ×5 (02:49→21:30)
[2020-03-31 05:51] LABS: Basophils # (auto) 0.1 10 ^3/uL (0-0.2); Basophils % (auto) 0.5 % (0.0-2.0); Eosinophils # (auto) 0.4 10 ^3/uL (0-0.8); Eosinophils % (auto) 3.1 % (0.0-7.0); Hematocrit 42.5 % (36.0-46.0); Hemoglobin 14.9 g/dL (12.2-16.2); Lymphocytes # (auto) 0.8 10 ^3/uL (0.4-5.4); Lymphocytes % (auto) 5.6 % (10.0-50.0); Mean Corpuscular Hemoglobin 32.5 pg (28.0-32.0); Mean Corpuscular Volume 92.8 fL (80.0-100.0); Monocytes # (auto) 0.3 10 ^3/uL (0-1.3); Monocytes % (auto) 2.6 % (0.0-12.0); Neutrophils # (auto) 12.1 10 ^3/uL (1.6-8.6); Neutrophils % (auto) 88.2 % (37.0-80.0); Nucleated Red Blood Cells % 0.1 %; Platelet Count (auto) 192 10^3/uL (140-450); Red Blood Cells 4.58 10^6/uL (4.0-5.20); Red Cell Distribution Width 13.1 % (11.8-14.3); White Blood Cell 13.7 10^3/uL (4.4-10.8)
[2020-03-31] MEDS: InsuLIN REG 1unit/0.01ml Soln (100units/ml) SC SCH ×4 (06:00→23:53)
[2020-03-31 06:10] LABS: Albumin 2.6 g/dL (3.4-5.0); Potassium 4.1 mmol/L (3.5-5.1)
[2020-03-31 06:20] LABS: BUN/Creatinine Ratio 46.9; Bilirubin, Total 0.4 mg/dL (0.2-1.0); Calcium 8.4 mg/dL (8.5-10.1); Magnesium 2.1 mg/dL (1.6-2.6)
[2020-03-31] MEDS: ACCU-CHEK COMFORT CURVE STRIP VI SCH ×4 (06:44→23:50)
[2020-03-31 08:00] VITALS: BP 107/62
[2020-03-31] MEDS: diphenhdrAMINE HCL 50 MG/1 ML VL IV PRN ×2 (08:00→20:09)
[2020-03-31] MEDS: MORPHINE SULF INJ 2 MG/ML SYRINGE 1ML IV PRN (09:38)
[2020-03-31] MEDS: CITALOPRAM HYDROBR 20 MG TAB PO SCH (09:39)
[2020-03-31] MEDS: SODIUM CHLOR 0.9% PF (SALINE LOCK) 10ML VIAL/SYR IV SCH ×2 (09:39→22:11)
[2020-03-31] MEDS: FUROSEMIDE 20 MG/2 ML VIAL IV SCH (09:39)
[2020-03-31] MEDS: ENOXAPARIN SOD 40 MG/0.4 ML SYRINGE SC SCH ×3 (09:40→22:12)
[2020-03-31] MEDS: CHOLECALCIFEROL (VITD3) 2,000 UNIT CAP/TAB PO SCH (09:40)
[2020-03-31] MEDS: BUDESONIDE (INHALATION) 180 MCG IH IN SCH ×2 (10:00→19:37)
[2020-03-31] MEDS: HYDROmorphone HCL 2 MG/ML VL IV PRN ×3 (13:18→23:30)
[2020-03-31 15:52] VITALS: BP 93/55
[2020-03-31] MEDS ORDERED: TPN PER PHARMACY IV NR ×11 (20:00)
[2020-03-31] MEDS: FAMOTIDINE (10MG/ML) 2ML VL IV SCH (22:11)
[2020-04-01] VITALS (81 sets, daily range): BP systolic 74–133; BP diastolic 49–86
[2020-04-01] MEDS: EPINEPHrine HCL 250 ML IV SCH
[2020-04-01] MEDS: LORazepam 2MG/ML-1ML VIAL IV PRN (01:46)
[2020-04-01] MEDS: diphenhdrAMINE HCL 50 MG/1 ML VL IV PRN (02:59)
[2020-04-01] MEDS ORDERED: HALOPERIDOL LACTATE 5 MG/ML INJ VIAL IM ONE (03:00)
[2020-04-01] MEDS ORDERED: SUCCINYLCHOLINE CHLORIDE 20 MG/ML 10ML VIAL IV ONE (03:26)
[2020-04-01] MEDS ORDERED: ETOMIDATE (2MG/ML) 20ML VIAL IV ONE (03:26)
[2020-04-01] MEDS ORDERED: MIDAZOLAM HCL 5 MG/ML-1ML VIAL IV ONE ×2 (03:45→05:00)
[2020-04-01] MEDS ORDERED: MIDAZOLAM DRIP 50 mg/50mL 50 ML IV ONE ×2 (03:46→03:59)
[2020-04-01] MEDS: MIDAZOLAM DRIP 50 mg/50mL 50 ML IV SCH ×2 (03:50→05:00)
[2020-04-01] MEDS: fentaNYL Drip 2500mCg/250mlNS 250 ML IV SCH ×2 (03:50→05:00)
[2020-04-01] MEDS ORDERED: MIDAZOLAM HCL 1MG/1ML-2 ML VIAL ONE ×2 (03:51→03:57)
[2020-04-01] MEDS ORDERED: fentaNYL Drip 2500mCg/250mlNS 250 ML IV ONE (03:52)
[2020-04-01] MEDS ORDERED: NOREPINEPHRINE 8 MG/250ML KIT 250 ML IV ONE (04:10)
[2020-04-01] MEDS: NOREPINEPHRINE 8 MG/250ML KIT 250 ML IV SCH ×2 (04:15→21:55)
[2020-04-01] MEDS: SODIUM CHLORIDE 0.9% 1,000 ML IV SCH ×2 (05:14→06:00)
[2020-04-01 05:56] LABS: Basophils # (auto) 0.1 10 ^3/uL (0-0.2); Basophils % (auto) 0.5 % (0.0-2.0); Eosinophils # (auto) 0.5 10 ^3/uL (0-0.8); Eosinophils % (auto) 3.2 % (0.0-7.0); Hematocrit 41.7 % (36.0-46.0); Hemoglobin 14.5 g/dL (12.2-16.2); Lymphocytes # (auto) 0.7 10 ^3/uL (0.4-5.4); Mean Corpuscular Hemoglobin 32.6 pg (28.0-32.0); Mean Corpuscular Hgb Conc. 34.7 g/dL (32.0-36.0); Mean Corpuscular Volume 93.8 fL (80.0-100.0); Monocytes # (auto) 0.4 10 ^3/uL (0-1.3); Neutrophils % (auto) 88.3 % (37.0-80.0); Nucleated Red Blood Cells % 0.2 %; Platelet Count (auto) 205 10^3/uL (140-450); Red Blood Cells 4.45 10^6/uL (4.0-5.20); Red Cell Distribution Width 13.1 % (11.8-14.3); White Blood Cell 14.8 10^3/uL (4.4-10.8)
[2020-04-01 06:12] LABS: Potassium 3.9 mmol/L (3.5-5.1)
[2020-04-01 06:14] LABS: Pre Albumin 22.7 mg/dL (20.0-40.0)
[2020-04-01 06:21] LABS: Albumin 2.4 g/dL (3.4-5.0); Bilirubin, Total 0.3 mg/dL (0.2-1.0); Calcium 8.1 mg/dL (8.5-10.1); Magnesium 1.9 mg/dL (1.6-2.6); Phosphorus 4.2 mg/dL (2.5-4.90); Total Protein 6.4 g/dL (6.4-8.2)
[2020-04-01] MEDS: ACCU-CHEK COMFORT CURVE STRIP VI SCH ×3 (06:34→17:25)
[2020-04-01] MEDS: InsuLIN REG 1unit/0.01ml Soln (100units/ml) SC SCH ×3 (06:35→17:25)
[2020-04-01] MEDS: SODIUM CHLOR 0.9% PF (SALINE LOCK) 10ML VIAL/SYR IV SCH ×2 (10:00→21:54)
[2020-04-01] MEDS: CITALOPRAM HYDROBR 20 MG TAB PO SCH (10:00)
[2020-04-01] MEDS: FUROSEMIDE 20 MG/2 ML VIAL IV SCH (10:00)
[2020-04-01] MEDS: ENOXAPARIN SOD 40 MG/0.4 ML SYRINGE SC SCH ×2 (10:00→21:54)
[2020-04-01] MEDS: CHOLECALCIFEROL (VITD3) 2,000 UNIT CAP/TAB PO SCH (10:00)
[2020-04-01] MEDS: PROPOFOL 100 ML IV SCH ×2 (11:30→21:56)
[2020-04-01] MEDS: VASOPRESSIN 50 UNITS in D5W 5% 247.5 ML IV SCH (13:45)
[2020-04-01] MEDS ORDERED: PHENYLEPHRINE IV 250 ML IV ONE (15:44)
[2020-04-01] MEDS: PHENYLEPHRINE IV 250 ML IV SCH ×2 (17:00→21:55)
[2020-04-01] MEDS ORDERED: TPN PER PHARMACY IV NR ×9 (20:00)
[2020-04-01] MEDS: ATRACURIUM BESYLATE 1,000 MG in D5W 5% 150 ML IV SCH (20:50)
[2020-04-01] MEDS ORDERED: ATRACURIUM BESYLATE (10 MG/ ML) 10 ML VIAL ONE (21:26)
[2020-04-01] MEDS: FAMOTIDINE (10MG/ML) 2ML VL IV SCH (21:54)
[2020-04-01] MEDS ORDERED: VASOPRESSIN 20 UNIT/ML ONE (23:22)
[2020-04-02] VITALS (99 sets, daily range): BP systolic 93–170; BP diastolic 24–85
[2020-04-02] MEDS: VASOPRESSIN 50 UNITS in D5W 5% 247.5 ML IV SCH ×2 (00:41→14:03)
[2020-04-02] MEDS: ACCU-CHEK COMFORT CURVE STRIP VI SCH ×4 (00:58→18:13)
[2020-04-02 03:38] LABS: Basophils # (auto) 0.1 10 ^3/uL (0-0.2); Basophils % (auto) 0.6 % (0.0-2.0); Eosinophils # (auto) 0.3 10 ^3/uL (0-0.8); Eosinophils % (auto) 2.1 % (0.0-7.0); Hematocrit 44.9 % (36.0-46.0); Hemoglobin 15.2 g/dL (12.2-16.2); Lymphocytes # (auto) 2.4 10 ^3/uL (0.4-5.4); Lymphocytes % (auto) 14.5 % (10.0-50.0); Mean Corpuscular Hemoglobin 32.1 pg (28.0-32.0); Mean Corpuscular Hgb Conc. 33.9 g/dL (32.0-36.0); Mean Corpuscular Volume 94.7 fL (80.0-100.0); Monocytes # (auto) 0.5 10 ^3/uL (0-1.3); Neutrophils # (auto) 13.2 10 ^3/uL (1.6-8.6); Neutrophils % (auto) 79.8 % (37.0-80.0); Nucleated Red Blood Cells % 0.5 %; Platelet Count (auto) 166 10^3/uL (140-450); Red Blood Cells 4.74 10^6/uL (4.0-5.20); Red Cell Distribution Width 13.3 % (11.8-14.3); White Blood Cell 16.6 10^3/uL (4.4-10.8)
[2020-04-02 03:56] LABS: Albumin 2.3 g/dL (3.4-5.0); Calcium 7.4 mg/dL (8.5-10.1); Magnesium 1.7 mg/dL (1.6-2.6)
[2020-04-02 04:00] LABS: BUN/Creatinine Ratio 20.5; Bilirubin, Total 1.1 mg/dL (0.2-1.0); Phosphorus 5.8 mg/dL (2.5-4.90); Total Protein 6.2 g/dL (6.4-8.2)
[2020-04-02 04:16] LABS: Potassium 5.6 mmol/L (3.5-5.1)
[2020-04-02] MEDS ORDERED: SODIUM ZIRCONIUM CYCL 10 GM PAK PO ONE (04:45)
[2020-04-02] MEDS: fentaNYL Drip 2500mCg/250mlNS 250 ML IV SCH ×2 (06:00→16:09)
[2020-04-02] MEDS: InsuLIN REG 1unit/0.01ml Soln (100units/ml) SC SCH ×4 (06:00→18:12)
[2020-04-02] MEDS: NOREPINEPHRINE 8 MG/250ML KIT 250 ML IV SCH ×4 (06:22→22:00)
[2020-04-02] MEDS: MIDAZOLAM DRIP 50 mg/50mL 50 ML IV SCH ×4 (06:43→22:37)
[2020-04-02] MEDS: PHENYLEPHRINE IV 250 ML IV SCH ×3 (06:43→22:42)
[2020-04-02] MEDS: PROPOFOL 100 ML IV SCH ×2 (06:44→12:57)
[2020-04-02] MEDS: CITALOPRAM HYDROBR 20 MG TAB PO SCH (09:18)
[2020-04-02] MEDS: FUROSEMIDE 20 MG/2 ML VIAL IV SCH (09:18)
[2020-04-02] MEDS: ENOXAPARIN SOD 40 MG/0.4 ML SYRINGE SC SCH ×2 (09:18→21:08)
[2020-04-02] MEDS: SODIUM CHLOR 0.9% PF (SALINE LOCK) 10ML VIAL/SYR IV SCH ×2 (09:18→21:07)
[2020-04-02] MEDS: CHOLECALCIFEROL (VITD3) 2,000 UNIT CAP/TAB PO SCH (09:32)
[2020-04-02] MEDS: SODIUM CHLORIDE 0.9% 1,000 ML IV SCH (10:22)
[2020-04-02] MEDS ORDERED: ALBUTEROL SULF 2.5 MG/0.5ML(0.5%) NEB SOLN NEB ONE (11:00)
[2020-04-02] MEDS ORDERED: SODIUM BICARBONATE 8.4 % INJ 50ML VIAL IV ONE (11:00)
[2020-04-02] MEDS ORDERED: BUMETANIDE 2.5mg/10ml (0.25 mg/ml) INJ IV ONE (11:00)
[2020-04-02] MEDS ORDERED: PIPERACILLIN-TAZOB 3.375GM 100 ML IV SCH (12:00)
[2020-04-02] MEDS: HYDROCORTISONE SOD SUCC 100 MG/2ML INJ VIAL IV SCH ×2 (12:26→18:13)
[2020-04-02] MEDS: SODIUM BICARBONATE 50ML VIAL 150 ML in D5W 5% 1,000 ML IV SCH (12:49)
[2020-04-02] MEDS ORDERED: PIPERACILLIN-TAZO 4.5GM 100 ML IV SCH (14:00)
[2020-04-02] MEDS ORDERED: MEROPENEM 1GM IVPB 100 ML IV ONE (14:30)
[2020-04-02] MEDS: ATRACURIUM BESYLATE 1,000 MG in D5W 5% 150 ML IV SCH (15:05)
[2020-04-02] MEDS: LINEZOLID 600MG/300ML 300 ML IV SCH (15:06)
[2020-04-02] MEDS: SODIUM ZIRCONIUM CYCL 10 GM PAK PO SCH ×2 (15:37→21:07)
[2020-04-02] MEDS: EPINEPHrine HCL 250 ML IV SCH (15:45)
[2020-04-02 17:08] LABS: Urine Bacteria NONE SEEN /hpf (None Seen); Urine Blood 2+ /uL (Negative); Urine Mucus FEW (None Seen); Urine Specific Gravity 1.009 (1.001-1.035); Urine WBC 6 /hpf (0 - 5)
[2020-04-02 17:11] LABS: Protein, Urine 27.5 mg/dL (0.0-11.9)
[2020-04-02] MEDS: MEROPENEM 500MG IVPB 50 ML IV SCH (21:07)
[2020-04-02] MEDS: FAMOTIDINE (10MG/ML) 2ML VL IV SCH (21:07)
[2020-04-02] MEDS ORDERED: LINEZOLID 600MG/300ML 300 ML IV SCH (22:00)
[2020-04-03] VITALS (98 sets, daily range): BP systolic 88–176; BP diastolic 49–83
[2020-04-03] MEDS: SODIUM BICARBONATE 50ML VIAL 150 ML in D5W 5% 1,000 ML IV SCH ×2 (00:04→09:38)
[2020-04-03] MEDS: InsuLIN REG 1unit/0.01ml Soln (100units/ml) SC SCH ×4 (00:05→17:52)
[2020-04-03] MEDS: ACCU-CHEK COMFORT CURVE STRIP VI SCH ×4 (00:05→17:52)
[2020-04-03] MEDS: LINEZOLID 600MG/300ML 300 ML IV SCH ×2 (03:56→14:30)
[2020-04-03] MEDS: PROPOFOL 100 ML IV SCH ×4 (04:05→22:04)
[2020-04-03] MEDS: NOREPINEPHRINE 8 MG/250ML KIT 250 ML IV SCH (04:05)
[2020-04-03] MEDS: fentaNYL Drip 2500mCg/250mlNS 250 ML IV SCH ×2 (05:45→17:49)
[2020-04-03] MEDS: MIDAZOLAM DRIP 50 mg/50mL 50 ML IV SCH ×4 (05:45→21:00)
[2020-04-03] MEDS: HYDROCORTISONE SOD SUCC 100 MG/2ML INJ VIAL IV SCH ×4 (05:51→17:52)
[2020-04-03] MEDS: SODIUM ZIRCONIUM CYCL 10 GM PAK PO SCH (05:52)
[2020-04-03 05:55] LABS: Basophils # (auto) 0.1 10 ^3/uL (0-0.2); Basophils % (auto) 0.4 % (0.0-2.0); Eosinophils # (auto) 0.1 10 ^3/uL (0-0.8); Eosinophils % (auto) 0.3 % (0.0-7.0); Hematocrit 35.2 % (36.0-46.0); Hemoglobin 12.1 g/dL (12.2-16.2); Lymphocytes # (auto) 1.3 10 ^3/uL (0.4-5.4); Lymphocytes % (auto) 5.3 % (10.0-50.0); Mean Corpuscular Hemoglobin 31.7 pg (28.0-32.0); Mean Corpuscular Hgb Conc. 34.5 g/dL (32.0-36.0); Mean Corpuscular Volume 91.7 fL (80.0-100.0); Monocytes # (auto) 0.8 10 ^3/uL (0-1.3); Monocytes % (auto) 3.5 % (0.0-12.0); Neutrophils % (auto) 90.5 % (37.0-80.0); Nucleated Red Blood Cells % 0.1 %; Platelet Count (auto) 188 10^3/uL (140-450); Red Blood Cells 3.84 10^6/uL (4.0-5.20); Red Cell Distribution Width 13.3 % (11.8-14.3); White Blood Cell 24.3 10^3/uL (4.4-10.8)
[2020-04-03 09:34] LABS: Albumin 1.9 g/dL (3.4-5.0); Calcium 6.5 mg/dL (8.5-10.1); Potassium 3.2 mmol/L (3.5-5.1)
[2020-04-03 09:36] LABS: BUN/Creatinine Ratio 22.7; Bilirubin, Total 0.6 mg/dL (0.2-1.0)
[2020-04-03] MEDS: MEROPENEM 500MG IVPB 50 ML IV SCH ×2 (09:38→22:02)
[2020-04-03] MEDS: PHENYLEPHRINE IV 250 ML IV SCH ×2 (09:38→14:34)
[2020-04-03] MEDS: SODIUM CHLOR 0.9% PF (SALINE LOCK) 10ML VIAL/SYR IV SCH ×2 (09:39→22:02)
[2020-04-03] MEDS: ENOXAPARIN SOD 40 MG/0.4 ML SYRINGE SC SCH ×2 (09:39→22:04)
[2020-04-03] MEDS: CITALOPRAM HYDROBR 20 MG TAB PO SCH (09:39)
[2020-04-03] MEDS: CHOLECALCIFEROL (VITD3) 2,000 UNIT CAP/TAB PO SCH (09:40)
[2020-04-03] MEDS: ATRACURIUM BESYLATE 1,000 MG in D5W 5% 150 ML IV SCH (14:15)
[2020-04-03] MEDS ORDERED: SODIUM CHLORIDE 0.9% 1,000 ML IV ONE (15:45)
[2020-04-03] MEDS: EPINEPHrine HCL 250 ML IV SCH (15:45)
[2020-04-03] MEDS ORDERED: SODIUM ZIRCONIUM CYCL 10 GM PAK PO SCH (22:00)
[2020-04-03] MEDS: FAMOTIDINE (10MG/ML) 2ML VL IV SCH (22:02)
[2020-04-04] VITALS (97 sets, daily range): BP systolic 95–173; BP diastolic 51–82
[2020-04-04] MEDS: HYDROCORTISONE SOD SUCC 100 MG/2ML INJ VIAL IV SCH ×3 (00:46→10:35)
[2020-04-04] MEDS: ACCU-CHEK COMFORT CURVE STRIP VI SCH ×4 (00:48→18:11)
[2020-04-04] MEDS: MIDAZOLAM DRIP 50 mg/50mL 50 ML IV SCH ×4 (00:53→18:13)
[2020-04-04] MEDS: PHENYLEPHRINE IV 250 ML IV SCH ×3 (02:05→18:45)
[2020-04-04] MEDS: LINEZOLID 600MG/300ML 300 ML IV SCH ×2 (02:33→15:37)
[2020-04-04] MEDS: PROPOFOL 100 ML IV SCH ×4 (03:04→18:12)
[2020-04-04 05:56] LABS: Basophils # (auto) 0 10 ^3/uL (0-0.2); Basophils % (auto) 0.2 % (0.0-2.0); Eosinophils # (auto) 0 10 ^3/uL (0-0.8); Eosinophils % (auto) 0.1 % (0.0-7.0); Hematocrit 31.4 % (36.0-46.0); Hemoglobin 10.5 g/dL (12.2-16.2); Lymphocytes # (auto) 1.1 10 ^3/uL (0.4-5.4); Lymphocytes % (auto) 4.9 % (10.0-50.0); Mean Corpuscular Hemoglobin 30.9 pg (28.0-32.0); Mean Corpuscular Hgb Conc. 33.4 g/dL (32.0-36.0); Mean Corpuscular Volume 92.3 fL (80.0-100.0); Monocytes % (auto) 4.4 % (0.0-12.0); Neutrophils # (auto) 21.2 10 ^3/uL (1.6-8.6); Neutrophils % (auto) 90.4 % (37.0-80.0); Nucleated Red Blood Cells % 0.1 %; Platelet Count (auto) 164 10^3/uL (140-450); Red Blood Cells 3.41 10^6/uL (4.0-5.20); Red Cell Distribution Width 13.6 % (11.8-14.3); White Blood Cell 23.4 10^3/uL (4.4-10.8)
[2020-04-04] MEDS: InsuLIN REG 1unit/0.01ml Soln (100units/ml) SC SCH ×4 (06:00→18:00)
[2020-04-04 06:04] LABS: Potassium 3.6 mmol/L (3.5-5.1)
[2020-04-04 06:19] LABS: Albumin 1.9 g/dL (3.4-5.0); Calcium 6.7 mg/dL (8.5-10.1)
[2020-04-04 06:21] LABS: Bilirubin, Total 0.5 mg/dL (0.2-1.0); Total Protein 4.8 g/dL (6.4-8.2)
[2020-04-04] MEDS: fentaNYL Drip 2500mCg/250mlNS 250 ML IV SCH ×2 (06:44→17:10)
[2020-04-04] MEDS: SODIUM CHLOR 0.9% PF (SALINE LOCK) 10ML VIAL/SYR IV SCH ×2 (10:00→22:30)
[2020-04-04] MEDS: MEROPENEM 500MG IVPB 50 ML IV SCH ×2 (10:34→22:29)
[2020-04-04] MEDS: CITALOPRAM HYDROBR 20 MG TAB PO SCH (10:39)
[2020-04-04] MEDS: CHOLECALCIFEROL (VITD3) 2,000 UNIT CAP/TAB PO SCH (10:40)
[2020-04-04] MEDS: VASOPRESSIN 50 UNITS in D5W 5% 247.5 ML IV SCH (13:00)
[2020-04-04] MEDS: ATRACURIUM BESYLATE 1,000 MG in D5W 5% 150 ML IV SCH (13:57)
[2020-04-04] MEDS ORDERED: PANTOPRAZOLE 40 MG/10 ML VIAL INJ IV ONE (15:15)
[2020-04-04] MEDS: EPINEPHrine HCL 250 ML IV SCH (15:45)
[2020-04-04] MEDS: PANTOPRAZOLE 40 MG/10 ML VIAL INJ IV SCH (22:30)
[2020-04-05] VITALS (98 sets, daily range): BP systolic 68–179; BP diastolic 37–81
[2020-04-05] MEDS: MIDAZOLAM DRIP 50 mg/50mL 50 ML IV SCH ×2 (00:45→09:21)
[2020-04-05] MEDS: LINEZOLID 600MG/300ML 300 ML IV SCH ×2 (02:30→14:37)
[2020-04-05] MEDS: fentaNYL Drip 2500mCg/250mlNS 250 ML IV SCH ×2 (02:45→14:00)
[2020-04-05] MEDS: PHENYLEPHRINE IV 250 ML IV SCH ×4 (03:05→19:45)
[2020-04-05] MEDS: NOREPINEPHRINE 8 MG/250ML KIT 250 ML IV SCH ×2 (03:52→14:00)
[2020-04-05 04:19] LABS: Potassium 3.7 mmol/L (3.5-5.1)
[2020-04-05 04:25] LABS: Albumin 1.2 g/dL (3.4-5.0); BUN/Creatinine Ratio 26.9; Bilirubin, Total 0.3 mg/dL (0.2-1.0); Calcium 6.1 mg/dL (8.5-10.1); Total Protein 2.9 g/dL (6.4-8.2)
[2020-04-05] MEDS ORDERED: SUCCINYLCHOLINE CHLORIDE 20 MG/ML 10ML VIAL IV ONE (04:25)
[2020-04-05] MEDS ORDERED: ETOMIDATE (2MG/ML) 20ML VIAL IV ONE (04:25)
[2020-04-05 04:54] LABS: Basophils # (auto) 0 10 ^3/uL (0-0.2); Basophils % (auto) 0.2 % (0.0-2.0); Eosinophils # (auto) 0 10 ^3/uL (0-0.8); Eosinophils % (auto) 0.3 % (0.0-7.0); Hematocrit 32.2 % (36.0-46.0); Lymphocytes % (auto) 11.4 % (10.0-50.0); Mean Corpuscular Hemoglobin 31.7 pg (28.0-32.0); Mean Corpuscular Hgb Conc. 34.3 g/dL (32.0-36.0); Mean Corpuscular Volume 92.4 fL (80.0-100.0); Monocytes # (auto) 0.9 10 ^3/uL (0-1.3); Monocytes % (auto) 4.9 % (0.0-12.0); Neutrophils # (auto) 14.6 10 ^3/uL (1.6-8.6); Neutrophils % (auto) 83.2 % (37.0-80.0); Nucleated Red Blood Cells % 0.2 %; Platelet Count (auto) 222 10^3/uL (140-450); Red Blood Cells 3.48 10^6/uL (4.0-5.20); Red Cell Distribution Width 13.5 % (11.8-14.3); White Blood Cell 17.5 10^3/uL (4.4-10.8)
[2020-04-05] MEDS: InsuLIN REG 1unit/0.01ml Soln (100units/ml) SC SCH ×2 (06:00)
[2020-04-05] MEDS: ACCU-CHEK COMFORT CURVE STRIP VI SCH ×2 (06:00)
[2020-04-05] MEDS: PROPOFOL 100 ML IV SCH (09:22)
[2020-04-05] MEDS: PANTOPRAZOLE 40 MG/10 ML VIAL INJ IV SCH ×2 (10:00→21:39)
[2020-04-05] MEDS: HYDROCORTISONE SOD SUCC 100 MG/2ML INJ VIAL IV SCH (10:00)
[2020-04-05] MEDS: CHOLECALCIFEROL (VITD3) 2,000 UNIT CAP/TAB PO SCH (10:00)
[2020-04-05] MEDS: MEROPENEM 500MG IVPB 50 ML IV SCH ×2 (10:00→21:39)
[2020-04-05] MEDS: SODIUM CHLOR 0.9% PF (SALINE LOCK) 10ML VIAL/SYR IV SCH ×2 (10:00→21:39)
[2020-04-05] MEDS: VASOPRESSIN 50 UNITS in D5W 5% 247.5 ML IV SCH (13:00)
[2020-04-05] MEDS: ATRACURIUM BESYLATE 1,000 MG in D5W 5% 150 ML IV SCH (13:00)
[2020-04-05] MEDS: EPINEPHrine HCL 250 ML IV SCH (15:45)
[2020-04-06] VITALS (93 sets, daily range): BP systolic 73–160; BP diastolic 43–83
[2020-04-06] MEDS: LINEZOLID 600MG/300ML 300 ML IV SCH ×2 (02:30→14:17)
[2020-04-06] MEDS: PHENYLEPHRINE IV 250 ML IV SCH ×3 (04:05→20:45)
[2020-04-06 04:50] LABS: Basophils # (auto) 0.1 10 ^3/uL (0-0.2); Basophils % (auto) 0.5 % (0.0-2.0); Eosinophils # (auto) 0.1 10 ^3/uL (0-0.8); Eosinophils % (auto) 1.1 % (0.0-7.0); Hematocrit 35.3 % (36.0-46.0); Hemoglobin 12.1 g/dL (12.2-16.2); Lymphocytes # (auto) 2.3 10 ^3/uL (0.4-5.4); Lymphocytes % (auto) 16.9 % (10.0-50.0); Mean Corpuscular Hemoglobin 32.1 pg (28.0-32.0); Mean Corpuscular Hgb Conc. 34.3 g/dL (32.0-36.0); Mean Corpuscular Volume 93.6 fL (80.0-100.0); Monocytes # (auto) 0.6 10 ^3/uL (0-1.3); Monocytes % (auto) 4.6 % (0.0-12.0); Neutrophils # (auto) 10.5 10 ^3/uL (1.6-8.6); Neutrophils % (auto) 76.9 % (37.0-80.0); Nucleated Red Blood Cells % 0.3 %; Platelet Count (auto) 234 10^3/uL (140-450); Red Blood Cells 3.77 10^6/uL (4.0-5.20); Red Cell Distribution Width 14.1 % (11.8-14.3); White Blood Cell 13.6 10^3/uL (4.4-10.8)
[2020-04-06] MEDS: NOREPINEPHRINE 8 MG/250ML KIT 250 ML IV SCH (05:00)
[2020-04-06 05:10] LABS: BUN/Creatinine Ratio 31.7; Calcium 7.6 mg/dL (8.5-10.1)
[2020-04-06] MEDS: SODIUM CHLOR 0.9% PF (SALINE LOCK) 10ML VIAL/SYR IV SCH ×2 (10:15→21:55)
[2020-04-06] MEDS: PANTOPRAZOLE 40 MG/10 ML VIAL INJ IV SCH ×2 (10:15→21:55)
[2020-04-06] MEDS: MEROPENEM 500MG IVPB 50 ML IV SCH (10:15)
[2020-04-06] MEDS: CHOLECALCIFEROL (VITD3) 2,000 UNIT CAP/TAB PO SCH (10:15)
[2020-04-06] MEDS: PROPOFOL 100 ML IV SCH (11:00)
[2020-04-06] MEDS: POTASSIUM CHL 20MEQ/100ML 100 ML IV SCH ×3 (11:30→15:55)
[2020-04-06] MEDS: ATRACURIUM BESYLATE 1,000 MG in D5W 5% 150 ML IV SCH (13:00)
[2020-04-06] MEDS: VASOPRESSIN 50 UNITS in D5W 5% 247.5 ML IV SCH (13:00)
[2020-04-06] MEDS: fentaNYL Drip 2500mCg/250mlNS 250 ML IV SCH (14:05)
[2020-04-06] MEDS: FREE WATER GT SCH ×2 (14:11→21:56)
[2020-04-06] MEDS ORDERED: TPN PER PHARMACY 0 ML IV SCH (15:00)
[2020-04-06] MEDS: EPINEPHrine HCL 250 ML IV SCH (15:45)
[2020-04-06] MEDS: MIDAZOLAM DRIP 50 mg/50mL 50 ML IV SCH (17:05)
[2020-04-06] MEDS ORDERED: AMINO ACID INFUSION IN D10W 1,000 ML IV NR (20:00)
[2020-04-07] VITALS (99 sets, daily range): BP systolic 90–155; BP diastolic 45–75
[2020-04-07] MEDS ORDERED: DEXTROSE (50%) 50ML SYRG IV SCH
[2020-04-07] MEDS: ACCU-CHEK COMFORT CURVE STRIP VI SCH ×5 (00:43→23:28)
[2020-04-07] MEDS: LINEZOLID 600MG/300ML 300 ML IV SCH ×2 (01:32→14:33)
[2020-04-07] MEDS: FREE WATER GT SCH ×2 (02:00→06:00)
[2020-04-07] MEDS: MIDAZOLAM DRIP 50 mg/50mL 50 ML IV SCH ×3 (02:38→23:29)
[2020-04-07] MEDS: MEROPENEM 1GM IVPB 100 ML IV SCH ×3 (03:26→18:13)
[2020-04-07 04:07] LABS: Albumin 1.8 g/dL (3.4-5.0); Potassium 3.5 mmol/L (3.5-5.1)
[2020-04-07 04:11] LABS: BUN/Creatinine Ratio 35.9; Bilirubin, Total 0.4 mg/dL (0.2-1.0); Phosphorus 2.6 mg/dL (2.5-4.90); Pre Albumin 22.8 mg/dL (20.0-40.0); Total Protein 4.5 g/dL (6.4-8.2)
[2020-04-07] MEDS: PHENYLEPHRINE IV 250 ML IV SCH ×3 (05:05→21:34)
[2020-04-07] MEDS: InsuLIN REG 1unit/0.01ml Soln (100units/ml) SC SCH ×5 (06:13→23:39)
[2020-04-07] MEDS: NOREPINEPHRINE 8 MG/250ML KIT 250 ML IV SCH (07:00)
[2020-04-07 07:17] LABS: Basophils # (auto) 0.1 10 ^3/uL (0-0.2); Basophils % (auto) 0.6 % (0.0-2.0); Eosinophils # (auto) 0.3 10 ^3/uL (0-0.8); Eosinophils % (auto) 2.9 % (0.0-7.0); Hematocrit 32.8 % (36.0-46.0); Hemoglobin 11.2 g/dL (12.2-16.2); Lymphocytes # (auto) 2.1 10 ^3/uL (0.4-5.4); Lymphocytes % (auto) 20.9 % (10.0-50.0); Mean Corpuscular Hemoglobin 32.5 pg (28.0-32.0); Mean Corpuscular Hgb Conc. 34.1 g/dL (32.0-36.0); Mean Corpuscular Volume 95.3 fL (80.0-100.0); Monocytes # (auto) 0.5 10 ^3/uL (0-1.3); Monocytes % (auto) 4.7 % (0.0-12.0); Neutrophils % (auto) 70.9 % (37.0-80.0); Nucleated Red Blood Cells % 0.1 %; Platelet Count (auto) 220 10^3/uL (140-450); Red Blood Cells 3.45 10^6/uL (4.0-5.20); Red Cell Distribution Width 13.9 % (11.8-14.3); White Blood Cell 9.8 10^3/uL (4.4-10.8)
[2020-04-07] MEDS ORDERED: FUROSEMIDE 20 MG/2 ML VIAL IV ONE (09:45)
[2020-04-07] MEDS ORDERED: FUROSEMIDE 20 MG/2 ML VIAL ONE (09:48)
[2020-04-07] MEDS: SODIUM CHLOR 0.9% PF (SALINE LOCK) 10ML VIAL/SYR IV SCH ×2 (10:15→21:36)
[2020-04-07] MEDS: PANTOPRAZOLE 40 MG/10 ML VIAL INJ IV SCH ×2 (10:15→21:35)
[2020-04-07] MEDS: CHOLECALCIFEROL (VITD3) 2,000 UNIT CAP/TAB PO SCH (10:15)
[2020-04-07] MEDS: PROPOFOL 100 ML IV SCH (11:00)
[2020-04-07] MEDS: ATRACURIUM BESYLATE 1,000 MG in D5W 5% 150 ML IV SCH (13:00)
[2020-04-07] MEDS: ENOXAPARIN SOD 40 MG/0.4 ML SYRINGE SC SCH ×2 (13:00→21:36)
[2020-04-07] MEDS: VASOPRESSIN 50 UNITS in D5W 5% 247.5 ML IV SCH (13:00)
[2020-04-07] MEDS: fentaNYL Drip 2500mCg/250mlNS 250 ML IV SCH (14:00)
[2020-04-07] MEDS: EPINEPHrine HCL 250 ML IV SCH (15:45)
[2020-04-07] MEDS: TPN PER PHARMACY IV NR ×9 (20:00)
[2020-04-07] MEDS: FUROSEMIDE 20 MG/2 ML VIAL IV SCH (21:35)
[2020-04-08] VITALS (99 sets, daily range): BP systolic 74–131; BP diastolic 44–74
[2020-04-08] MEDS: MEROPENEM 1GM IVPB 100 ML IV SCH ×3 (02:00→17:50)
[2020-04-08] MEDS: LINEZOLID 600MG/300ML 300 ML IV SCH ×2 (02:29→14:09)
[2020-04-08 03:42] LABS: Albumin 1.9 g/dL (3.4-5.0); Calcium 7.4 mg/dL (8.5-10.1); Magnesium 1.6 mg/dL (1.6-2.6)
[2020-04-08 03:46] LABS: Bilirubin, Total 0.5 mg/dL (0.2-1.0); Phosphorus 3.5 mg/dL (2.5-4.90); Total Protein 4.9 g/dL (6.4-8.2)
[2020-04-08 03:53] LABS: Potassium 2.9 mmol/L (3.5-5.1)
[2020-04-08] MEDS: POTASSIUM CHL 20MEQ/100ML 100 ML IV SCH ×5 (04:37→15:54)
[2020-04-08] MEDS: fentaNYL Drip 2500mCg/250mlNS 250 ML IV SCH ×2 (05:00→16:27)
[2020-04-08] MEDS: NOREPINEPHRINE 8 MG/250ML KIT 250 ML IV SCH (05:00)
[2020-04-08] MEDS: ACCU-CHEK COMFORT CURVE STRIP VI SCH ×3 (05:44→17:49)
[2020-04-08] MEDS: InsuLIN REG 1unit/0.01ml Soln (100units/ml) SC SCH ×3 (05:44→17:49)
[2020-04-08] MEDS: PHENYLEPHRINE IV 250 ML IV SCH ×3 (05:45→22:45)
[2020-04-08] MEDS: MIDAZOLAM DRIP 50 mg/50mL 50 ML IV SCH (08:51)
[2020-04-08] MEDS: CHOLECALCIFEROL (VITD3) 2,000 UNIT CAP/TAB PO SCH (09:42)
[2020-04-08] MEDS: PANTOPRAZOLE 40 MG/10 ML VIAL INJ IV SCH ×2 (09:42→22:00)
[2020-04-08] MEDS: ENOXAPARIN SOD 40 MG/0.4 ML SYRINGE SC SCH ×2 (09:42→22:00)
[2020-04-08] MEDS: SODIUM CHLOR 0.9% PF (SALINE LOCK) 10ML VIAL/SYR IV SCH ×2 (09:43→22:00)
[2020-04-08] MEDS: FUROSEMIDE 20 MG/2 ML VIAL IV SCH ×2 (09:43→22:00)
[2020-04-08] MEDS ORDERED: FUROSEMIDE 20 MG/2 ML VIAL IV SCH (10:00)
[2020-04-08] MEDS: PROPOFOL 100 ML IV SCH (11:00)
[2020-04-08] MEDS: DexAMETHasone SOD PHOS 4 MG/1ML SDV INJ IV SCH (11:21)
[2020-04-08] MEDS: MAGNESIUM SULFATE 1GM/100ML 100 ML IV SCH ×2 (12:31→13:48)
[2020-04-08] MEDS: ATRACURIUM BESYLATE 1,000 MG in D5W 5% 150 ML IV SCH (12:41)
[2020-04-08] MEDS: VASOPRESSIN 50 UNITS in D5W 5% 247.5 ML IV SCH (12:42)
[2020-04-08] MEDS: EPINEPHrine HCL 250 ML IV SCH (14:10)
[2020-04-08] MEDS: TPN PER PHARMACY IV NR ×9 (19:44)
[2020-04-08] MEDS ORDERED: TPN PER PHARMACY IV NR ×9 (20:00)
[2020-04-09] VITALS (101 sets, daily range): BP systolic 67–149; BP diastolic 36–77
[2020-04-09] MEDS: InsuLIN REG 1unit/0.01ml Soln (100units/ml) SC SCH ×4 (00:40→18:14)
[2020-04-09] MEDS: ACCU-CHEK COMFORT CURVE STRIP VI SCH ×4 (00:40→17:44)
[2020-04-09] MEDS: LINEZOLID 600MG/300ML 300 ML IV SCH (01:40)
[2020-04-09] MEDS: MIDAZOLAM DRIP 50 mg/50mL 50 ML IV SCH ×2 (02:47→12:28)
[2020-04-09] MEDS: MEROPENEM 1GM IVPB 100 ML IV SCH ×2 (04:21→09:55)
[2020-04-09] MEDS: NOREPINEPHRINE 8 MG/250ML KIT 250 ML IV SCH ×2 (05:00→16:24)
[2020-04-09 06:19] LABS: Potassium 4.4 mmol/L (3.5-5.1)
[2020-04-09 06:24] LABS: Albumin 1.9 g/dL (3.4-5.0); BUN/Creatinine Ratio 38.1; Bilirubin, Total 0.4 mg/dL (0.2-1.0); Calcium 7.4 mg/dL (8.5-10.1); Magnesium 2.1 mg/dL (1.6-2.6); Phosphorus 2.9 mg/dL (2.5-4.90); Total Protein 4.8 g/dL (6.4-8.2)
[2020-04-09] MEDS: PHENYLEPHRINE IV 250 ML IV SCH ×3 (07:05→22:51)
[2020-04-09] MEDS: PROPOFOL 100 ML IV SCH (07:30)
[2020-04-09] MEDS: SODIUM CHLOR 0.9% PF (SALINE LOCK) 10ML VIAL/SYR IV SCH ×2 (09:54→21:46)
[2020-04-09] MEDS: PANTOPRAZOLE 40 MG/10 ML VIAL INJ IV SCH ×2 (09:54→21:45)
[2020-04-09] MEDS: ENOXAPARIN SOD 40 MG/0.4 ML SYRINGE SC SCH ×2 (09:54→21:46)
[2020-04-09] MEDS: DexAMETHasone SOD PHOS 4 MG/1ML SDV INJ IV SCH (09:55)
[2020-04-09] MEDS: FUROSEMIDE 20 MG/2 ML VIAL IV SCH ×2 (09:55→21:45)
[2020-04-09] MEDS: CHOLECALCIFEROL (VITD3) 2,000 UNIT CAP/TAB PO SCH (09:55)
[2020-04-09] MEDS ORDERED: FUROSEMIDE 20 MG/2 ML VIAL IV ONE (11:45)
[2020-04-09] MEDS: ATRACURIUM BESYLATE 1,000 MG in D5W 5% 150 ML IV SCH (11:48)
[2020-04-09] MEDS: VASOPRESSIN 50 UNITS in D5W 5% 247.5 ML IV SCH (11:49)
[2020-04-09] MEDS: EPINEPHrine HCL 250 ML IV SCH (11:49)
[2020-04-09 12:18] LABS: Basophils # (auto) 0 10 ^3/uL (0-0.2); Basophils % (auto) 0.2 % (0.0-2.0); Eosinophils # (auto) 0.3 10 ^3/uL (0-0.8); Eosinophils % (auto) 2.6 % (0.0-7.0); Hematocrit 34.5 % (36.0-46.0); Lymphocytes # (auto) 1.1 10 ^3/uL (0.4-5.4); Lymphocytes % (auto) 9.8 % (10.0-50.0); Mean Corpuscular Hgb Conc. 34.9 g/dL (32.0-36.0); Mean Corpuscular Volume 94.7 fL (80.0-100.0); Monocytes # (auto) 0.3 10 ^3/uL (0-1.3); Monocytes % (auto) 2.7 % (0.0-12.0); Neutrophils # (auto) 9.2 10 ^3/uL (1.6-8.6); Neutrophils % (auto) 84.7 % (37.0-80.0); Nucleated Red Blood Cells % 0.1 %; Platelet Count (auto) 223 10^3/uL (140-450); Red Blood Cells 3.64 10^6/uL (4.0-5.20); White Blood Cell 10.9 10^3/uL (4.4-10.8)
[2020-04-09] MEDS: fentaNYL Drip 2500mCg/250mlNS 250 ML IV SCH (15:31)
[2020-04-09] MEDS ORDERED: [UNRECOGNIZED DRUG - OTHER] IV NR ×11 (20:00)
[2020-04-09] MEDS ORDERED: SODIUM PHOSPHATES IV NR ×11 (20:00)
[2020-04-09] MEDS ORDERED: FAT EMULSION IV NR ×11 (20:00)
[2020-04-09] MEDS ORDERED: POTASSIUM CHLORIDE IV NR ×11 (20:00)
[2020-04-10] VITALS (99 sets, daily range): BP systolic 80–141; BP diastolic 42–69
[2020-04-10 03:10] LABS: Albumin 1.4 g/dL (3.4-5.0); Calcium 6.9 mg/dL (8.5-10.1); Magnesium 1.7 mg/dL (1.6-2.6); Potassium 3.2 mmol/L (3.5-5.1)
[2020-04-10 03:13] LABS: Bilirubin, Total 0.3 mg/dL (0.2-1.0); Phosphorus 2.8 mg/dL (2.5-4.90); Total Protein 3.7 g/dL (6.4-8.2)
[2020-04-10 04:21] LABS: Basophils # (auto) 0 10 ^3/uL (0-0.2); Basophils % (auto) 0.6 % (0.0-2.0); Eosinophils # (auto) 0.3 10 ^3/uL (0-0.8); Eosinophils % (auto) 4.1 % (0.0-7.0); Hematocrit 27.8 % (36.0-46.0); Hemoglobin 9.7 g/dL (12.2-16.2); Lymphocytes # (auto) 1.8 10 ^3/uL (0.4-5.4); Lymphocytes % (auto) 25.4 % (10.0-50.0); Mean Corpuscular Hemoglobin 33.1 pg (28.0-32.0); Mean Corpuscular Hgb Conc. 35.1 g/dL (32.0-36.0); Mean Corpuscular Volume 94.3 fL (80.0-100.0); Monocytes # (auto) 0.5 10 ^3/uL (0-1.3); Monocytes % (auto) 6.8 % (0.0-12.0); Neutrophils # (auto) 4.6 10 ^3/uL (1.6-8.6); Neutrophils % (auto) 63.1 % (37.0-80.0); Nucleated Red Blood Cells % 0.2 %; Platelet Count (auto) 174 10^3/uL (140-450); Red Blood Cells 2.94 10^6/uL (4.0-5.20); Red Cell Distribution Width 13.7 % (11.8-14.3); White Blood Cell 7.2 10^3/uL (4.4-10.8)
[2020-04-10] MEDS: ACCU-CHEK COMFORT CURVE STRIP VI SCH ×4 (06:41→17:45)
[2020-04-10] MEDS: InsuLIN REG 1unit/0.01ml Soln (100units/ml) SC SCH ×4 (06:42→17:45)
[2020-04-10] MEDS: PHENYLEPHRINE IV 250 ML IV SCH ×2 (08:05→11:59)
[2020-04-10] MEDS: PROPOFOL 100 ML IV SCH (08:34)
[2020-04-10] MEDS: PANTOPRAZOLE 40 MG/10 ML VIAL INJ IV SCH ×2 (09:18→21:04)
[2020-04-10] MEDS: SODIUM CHLOR 0.9% PF (SALINE LOCK) 10ML VIAL/SYR IV SCH ×2 (09:32→21:04)
[2020-04-10] MEDS: FUROSEMIDE 20 MG/2 ML VIAL IV SCH ×2 (09:32→21:04)
[2020-04-10] MEDS: DexAMETHasone SOD PHOS 4 MG/1ML SDV INJ IV SCH (09:32)
[2020-04-10] MEDS: CHOLECALCIFEROL (VITD3) 2,000 UNIT CAP/TAB PO SCH (09:33)
[2020-04-10] MEDS: ENOXAPARIN SOD 40 MG/0.4 ML SYRINGE SC SCH ×2 (09:33→21:05)
[2020-04-10] MEDS: MIDAZOLAM DRIP 50 mg/50mL 50 ML IV SCH ×2 (09:33→17:43)
[2020-04-10] MEDS: VASOPRESSIN 50 UNITS in D5W 5% 247.5 ML IV SCH (11:57)
[2020-04-10] MEDS: ATRACURIUM BESYLATE 1,000 MG in D5W 5% 150 ML IV SCH (11:57)
[2020-04-10] MEDS: EPINEPHrine HCL 250 ML IV SCH (11:58)
[2020-04-10] MEDS: POTASSIUM CHL 20MEQ/100ML 100 ML IV SCH ×3 (12:18→16:09)
[2020-04-10] MEDS: NOREPINEPHRINE 8 MG/250ML KIT 250 ML IV SCH (14:03)
[2020-04-10] MEDS: fentaNYL Drip 2500mCg/250mlNS 250 ML IV SCH (15:36)
[2020-04-11] VITALS (99 sets, daily range): BP systolic 71–136; BP diastolic 41–68
[2020-04-11] MEDS: PHENYLEPHRINE IV 250 ML IV SCH ×3 (00:01→11:47)
[2020-04-11 04:20] LABS: Basophils # (auto) 0 10 ^3/uL (0-0.2); Basophils % (auto) 0.6 % (0.0-2.0); Eosinophils # (auto) 0.2 10 ^3/uL (0-0.8); Eosinophils % (auto) 2.7 % (0.0-7.0); Hematocrit 29.7 % (36.0-46.0); Hemoglobin 10.2 g/dL (12.2-16.2); Lymphocytes # (auto) 2.2 10 ^3/uL (0.4-5.4); Lymphocytes % (auto) 26.2 % (10.0-50.0); Mean Corpuscular Hgb Conc. 34.4 g/dL (32.0-36.0); Mean Corpuscular Volume 95.9 fL (80.0-100.0); Monocytes # (auto) 0.5 10 ^3/uL (0-1.3); Monocytes % (auto) 5.4 % (0.0-12.0); Neutrophils # (auto) 5.4 10 ^3/uL (1.6-8.6); Neutrophils % (auto) 65.1 % (37.0-80.0); Nucleated Red Blood Cells % 0.3 %; Platelet Count (auto) 201 10^3/uL (140-450); White Blood Cell 8.4 10^3/uL (4.4-10.8)
[2020-04-11 04:44] LABS: Potassium 3.3 mmol/L (3.5-5.1)
[2020-04-11 04:47] LABS: BUN/Creatinine Ratio 53.1; Calcium 8.1 mg/dL (8.5-10.1)
[2020-04-11] MEDS: MIDAZOLAM DRIP 50 mg/50mL 50 ML IV SCH ×3 (05:06→20:07)
[2020-04-11] MEDS: InsuLIN REG 1unit/0.01ml Soln (100units/ml) SC SCH ×4 (05:59→17:47)
[2020-04-11] MEDS: ACCU-CHEK COMFORT CURVE STRIP VI SCH ×4 (05:59→17:47)
[2020-04-11] MEDS: PANTOPRAZOLE 40 MG/10 ML VIAL INJ IV SCH ×2 (09:36→21:55)
[2020-04-11] MEDS: SODIUM CHLOR 0.9% PF (SALINE LOCK) 10ML VIAL/SYR IV SCH ×2 (09:36→21:55)
[2020-04-11] MEDS: FUROSEMIDE 20 MG/2 ML VIAL IV SCH ×2 (09:36→21:55)
[2020-04-11] MEDS: ENOXAPARIN SOD 40 MG/0.4 ML SYRINGE SC SCH ×2 (09:36→21:56)
[2020-04-11] MEDS: DexAMETHasone SOD PHOS 4 MG/1ML SDV INJ IV SCH (09:36)
[2020-04-11] MEDS: CHOLECALCIFEROL (VITD3) 2,000 UNIT CAP/TAB PO SCH (09:37)
[2020-04-11] MEDS: PROPOFOL 100 ML IV SCH (09:37)
[2020-04-11] MEDS: ATRACURIUM BESYLATE 1,000 MG in D5W 5% 150 ML IV SCH (11:46)
[2020-04-11] MEDS: EPINEPHrine HCL 250 ML IV SCH (11:47)
[2020-04-11] MEDS: VASOPRESSIN 50 UNITS in D5W 5% 247.5 ML IV SCH (11:47)
[2020-04-11] MEDS ORDERED: InsuLIN REG 1unit/0.01ml Soln (100units/ml) ONE (11:51)
[2020-04-11] MEDS: POTASSIUM CHL 20MEQ/100ML 100 ML IV SCH ×3 (12:43→16:17)
[2020-04-11] MEDS: fentaNYL Drip 2500mCg/250mlNS 250 ML IV SCH (14:53)
[2020-04-11] MEDS: NOREPINEPHRINE 8 MG/250ML KIT 250 ML IV SCH (17:57)
[2020-04-12] VITALS (97 sets, daily range): BP systolic 78–140; BP diastolic 40–79
[2020-04-12] MEDS: ACCU-CHEK COMFORT CURVE STRIP VI SCH ×5 (00:30→23:55)
[2020-04-12] MEDS: PHENYLEPHRINE IV 250 ML IV SCH ×3 (01:45→22:31)
[2020-04-12 03:28] LABS: Basophils # (auto) 0 10 ^3/uL (0-0.2); Basophils % (auto) 0.4 % (0.0-2.0); Eosinophils # (auto) 0.1 10 ^3/uL (0-0.8); Eosinophils % (auto) 1.2 % (0.0-7.0); Hematocrit 28.5 % (36.0-46.0); Hemoglobin 9.8 g/dL (12.2-16.2); Lymphocytes # (auto) 2.6 10 ^3/uL (0.4-5.4); Lymphocytes % (auto) 26.3 % (10.0-50.0); Mean Corpuscular Hemoglobin 32.8 pg (28.0-32.0); Mean Corpuscular Hgb Conc. 34.4 g/dL (32.0-36.0); Mean Corpuscular Volume 95.4 fL (80.0-100.0); Monocytes # (auto) 1.1 10 ^3/uL (0-1.3); Monocytes % (auto) 11.2 % (0.0-12.0); Neutrophils # (auto) 6.1 10 ^3/uL (1.6-8.6); Neutrophils % (auto) 60.9 % (37.0-80.0); Nucleated Red Blood Cells % 0.6 %; Platelet Count (auto) 229 10^3/uL (140-450); Red Blood Cells 2.99 10^6/uL (4.0-5.20); Red Cell Distribution Width 14.3 % (11.8-14.3)
[2020-04-12 03:46] LABS: BUN/Creatinine Ratio 44.3; Calcium 8.1 mg/dL (8.5-10.1)
[2020-04-12] MEDS: InsuLIN REG 1unit/0.01ml Soln (100units/ml) SC SCH ×5 (05:59→23:56)
[2020-04-12] MEDS: MIDAZOLAM DRIP 50 mg/50mL 50 ML IV SCH (07:52)
[2020-04-12] MEDS: DexAMETHasone SOD PHOS 4 MG/1ML SDV INJ IV SCH (10:05)
[2020-04-12] MEDS: SODIUM CHLOR 0.9% PF (SALINE LOCK) 10ML VIAL/SYR IV SCH ×2 (10:06→22:28)
[2020-04-12] MEDS: FUROSEMIDE 20 MG/2 ML VIAL IV SCH ×2 (10:06→22:28)
[2020-04-12] MEDS: PANTOPRAZOLE 40 MG/10 ML VIAL INJ IV SCH ×2 (10:06→22:28)
[2020-04-12] MEDS: CHOLECALCIFEROL (VITD3) 2,000 UNIT CAP/TAB PO SCH (10:06)
[2020-04-12] MEDS: ENOXAPARIN SOD 40 MG/0.4 ML SYRINGE SC SCH ×2 (10:07→22:28)
[2020-04-12] MEDS: fentaNYL Drip 2500mCg/250mlNS 250 ML IV SCH (13:35)
[2020-04-12] MEDS: PROPOFOL 100 ML IV SCH (22:25)
[2020-04-12] MEDS: ATRACURIUM BESYLATE 1,000 MG in D5W 5% 150 ML IV SCH (22:26)
[2020-04-12] MEDS: VASOPRESSIN 50 UNITS in D5W 5% 247.5 ML IV SCH (22:26)
[2020-04-12] MEDS: EPINEPHrine HCL 250 ML IV SCH (22:30)
[2020-04-13] VITALS (90 sets, daily range): BP systolic 79–139; BP diastolic 41–75
[2020-04-13] MEDS: Jevity 1.2 Cal/Fiber 1 Liter GT SCH (00:53)
[2020-04-13] MEDS: MIDAZOLAM DRIP 50 mg/50mL 50 ML IV SCH ×3 (00:58→18:49)
[2020-04-13] MEDS: PHENYLEPHRINE IV 250 ML IV SCH ×3 (02:45→19:25)
[2020-04-13] MEDS: InsuLIN REG 1unit/0.01ml Soln (100units/ml) SC SCH ×3 (05:51→18:00)
[2020-04-13] MEDS: ACCU-CHEK COMFORT CURVE STRIP VI SCH ×3 (05:56→18:00)
[2020-04-13 07:07] LABS: Hematocrit 28.3 % (36.0-46.0); Hemoglobin 9.9 g/dL (12.2-16.2); Mean Corpuscular Hemoglobin 33.4 pg (28.0-32.0); Mean Corpuscular Volume 95.6 fL (80.0-100.0); Platelet Count (auto) 258 10^3/uL (140-450); Red Blood Cells 2.97 10^6/uL (4.0-5.20); Red Cell Distribution Width 14.1 % (11.8-14.3); White Blood Cell 10.6 10^3/uL (4.4-10.8)
[2020-04-13 07:26] LABS: Calcium 8.1 mg/dL (8.5-10.1); Potassium 3.3 mmol/L (3.5-5.1)
[2020-04-13 07:28] LABS: BUN/Creatinine Ratio 48.1
[2020-04-13 07:35] LABS: Basophils % (manual) 0 (0.0-2.0); Blast Cells 0; Metamyelocytes % 0; Promyelocytes % 0; Reactive Lymphocytes 0
[2020-04-13 08:41] LABS: Band Neutrophils % (manual) 5; Eosinophils % (manual) 1 (0-7); Lymphocytes % (manual) 30 (10.0-50.0); Monocytes % (manual) 11 (0-12); Myelocytes % 1
[2020-04-13] MEDS: FUROSEMIDE 20 MG/2 ML VIAL IV SCH ×2 (09:58→22:00)
[2020-04-13] MEDS: DexAMETHasone SOD PHOS 4 MG/1ML SDV INJ IV SCH (09:58)
[2020-04-13] MEDS: CHOLECALCIFEROL (VITD3) 2,000 UNIT CAP/TAB PO SCH (09:59)
[2020-04-13] MEDS: ENOXAPARIN SOD 40 MG/0.4 ML SYRINGE SC SCH ×2 (09:59→22:00)
[2020-04-13] MEDS: PANTOPRAZOLE 40 MG/10 ML VIAL INJ IV SCH ×2 (09:59→22:00)
[2020-04-13] MEDS: SODIUM CHLOR 0.9% PF (SALINE LOCK) 10ML VIAL/SYR IV SCH ×2 (09:59→22:24)
[2020-04-13] MEDS: PROPOFOL 100 ML IV SCH (11:00)
[2020-04-13] MEDS: POTASSIUM CHL 20MEQ/100ML 100 ML IV SCH ×2 (11:03→13:49)
[2020-04-13] MEDS: ATRACURIUM BESYLATE 1,000 MG in D5W 5% 150 ML IV SCH (13:00)
[2020-04-13] MEDS: VASOPRESSIN 50 UNITS in D5W 5% 247.5 ML IV SCH (13:00)
[2020-04-13] MEDS: EPINEPHrine HCL 250 ML IV SCH (15:45)
[2020-04-13] MEDS: fentaNYL Drip 2500mCg/250mlNS 250 ML IV SCH (18:31)
[2020-04-14] VITALS (89 sets, daily range): BP systolic 73–149; BP diastolic 41–76
[2020-04-14] MEDS: PHENYLEPHRINE IV 250 ML IV SCH ×3 (03:45→20:25)
[2020-04-14] MEDS: NOREPINEPHRINE 8 MG/250ML KIT 250 ML IV SCH ×2 (05:00→15:45)
[2020-04-14 06:03] LABS: Hematocrit 27.2 % (36.0-46.0); Hemoglobin 9.4 g/dL (12.2-16.2); Mean Corpuscular Hemoglobin 33.1 pg (28.0-32.0); Mean Corpuscular Hgb Conc. 34.5 g/dL (32.0-36.0); Mean Corpuscular Volume 96.1 fL (80.0-100.0); Platelet Count (auto) 263 10^3/uL (140-450); Red Blood Cells 2.84 10^6/uL (4.0-5.20); Red Cell Distribution Width 14.5 % (11.8-14.3); White Blood Cell 10.2 10^3/uL (4.4-10.8)
[2020-04-14 06:14] LABS: Basophils % (manual) 0 (0.0-2.0); Blast Cells 0; Myelocytes % 0; Promyelocytes % 0; Reactive Lymphocytes 0
[2020-04-14 06:22] LABS: BUN/Creatinine Ratio 46.3; Calcium 7.9 mg/dL (8.5-10.1); Potassium 3.4 mmol/L (3.5-5.1)
[2020-04-14 06:47] LABS: Band Neutrophils % (manual) 34; Eosinophils % (manual) 2 (0-7); Lymphocytes % (manual) 30 (10.0-50.0); Metamyelocytes % 1; Monocytes % (manual) 8 (0-12)
[2020-04-14] MEDS: SODIUM CHLOR 0.9% PF (SALINE LOCK) 10ML VIAL/SYR IV SCH ×2 (10:18→22:15)
[2020-04-14] MEDS: FUROSEMIDE 20 MG/2 ML VIAL IV SCH ×2 (10:18→22:00)
[2020-04-14] MEDS: PANTOPRAZOLE 40 MG/10 ML VIAL INJ IV SCH ×2 (10:18→22:15)
[2020-04-14] MEDS: DexAMETHasone SOD PHOS 4 MG/1ML SDV INJ IV SCH (10:18)
[2020-04-14] MEDS: ENOXAPARIN SOD 40 MG/0.4 ML SYRINGE SC SCH ×2 (10:19→22:16)
[2020-04-14] MEDS: CHOLECALCIFEROL (VITD3) 2,000 UNIT CAP/TAB PO SCH (10:19)
[2020-04-14] MEDS: PROPOFOL 100 ML IV SCH (11:00)
[2020-04-14] MEDS: POTASSIUM CHL 20MEQ/100ML 100 ML IV SCH ×3 (11:43→15:46)
[2020-04-14] MEDS: VASOPRESSIN 50 UNITS in D5W 5% 247.5 ML IV SCH (13:00)
[2020-04-14] MEDS: ATRACURIUM BESYLATE 1,000 MG in D5W 5% 150 ML IV SCH (13:00)
[2020-04-14] MEDS: fentaNYL Drip 2500mCg/250mlNS 250 ML IV SCH (13:35)
[2020-04-14] MEDS: EPINEPHrine HCL 250 ML IV SCH (15:45)
[2020-04-14] MEDS: MIDAZOLAM DRIP 50 mg/50mL 50 ML IV SCH (16:00)
[2020-04-15] VITALS (91 sets, daily range): BP systolic 77–135; BP diastolic 46–85
[2020-04-15] MEDS: PHENYLEPHRINE IV 250 ML IV SCH ×3 (04:45→19:23)
[2020-04-15 04:51] LABS: Basophils # (auto) 0.1 10 ^3/uL (0-0.2); Basophils % (auto) 0.5 % (0.0-2.0); Eosinophils # (auto) 0.1 10 ^3/uL (0-0.8); Eosinophils % (auto) 1.4 % (0.0-7.0); Hematocrit 27.9 % (36.0-46.0); Hemoglobin 9.6 g/dL (12.2-16.2); Lymphocytes # (auto) 2.3 10 ^3/uL (0.4-5.4); Lymphocytes % (auto) 24.6 % (10.0-50.0); Mean Corpuscular Hemoglobin 32.8 pg (28.0-32.0); Mean Corpuscular Hgb Conc. 34.3 g/dL (32.0-36.0); Mean Corpuscular Volume 95.6 fL (80.0-100.0); Monocytes # (auto) 0.8 10 ^3/uL (0-1.3); Monocytes % (auto) 8.9 % (0.0-12.0); Neutrophils # (auto) 6.1 10 ^3/uL (1.6-8.6); Neutrophils % (auto) 64.6 % (37.0-80.0); Nucleated Red Blood Cells % 0.1 %; Platelet Count (auto) 291 10^3/uL (140-450); Red Blood Cells 2.92 10^6/uL (4.0-5.20); Red Cell Distribution Width 14.9 % (11.8-14.3); White Blood Cell 9.5 10^3/uL (4.4-10.8)
[2020-04-15] MEDS: NOREPINEPHRINE 8 MG/250ML KIT 250 ML IV SCH (05:00)
[2020-04-15 05:08] LABS: Albumin 2.4 g/dL (3.4-5.0); Calcium 6.3 mg/dL (8.5-10.1); Potassium 4.6 mmol/L (3.5-5.1)
[2020-04-15 05:13] LABS: BUN/Creatinine Ratio 39.7; Bilirubin, Total 0.3 mg/dL (0.2-1.0); Total Protein 5.7 g/dL (6.4-8.2)
[2020-04-15] MEDS: CHOLECALCIFEROL (VITD3) 2,000 UNIT CAP/TAB PO SCH (10:00)
[2020-04-15] MEDS: DexAMETHasone SOD PHOS 4 MG/1ML SDV INJ IV SCH (10:00)
[2020-04-15] MEDS: SODIUM CHLOR 0.9% PF (SALINE LOCK) 10ML VIAL/SYR IV SCH ×2 (10:00→21:14)
[2020-04-15] MEDS: PANTOPRAZOLE 40 MG/10 ML VIAL INJ IV SCH ×2 (10:00→21:14)
[2020-04-15] MEDS: ENOXAPARIN SOD 40 MG/0.4 ML SYRINGE SC SCH ×2 (10:00→21:14)
[2020-04-15] MEDS: FUROSEMIDE 20 MG/2 ML VIAL IV SCH ×2 (10:00→21:37)
[2020-04-15] MEDS: PROPOFOL 100 ML IV SCH (10:57)
[2020-04-15] MEDS: fentaNYL Drip 2500mCg/250mlNS 250 ML IV SCH ×2 (12:00→21:00)
[2020-04-15] MEDS: ATRACURIUM BESYLATE 1,000 MG in D5W 5% 150 ML IV SCH (13:00)
[2020-04-15] MEDS: VASOPRESSIN 50 UNITS in D5W 5% 247.5 ML IV SCH (13:00)
[2020-04-15] MEDS: EPINEPHrine HCL 250 ML IV SCH (13:33)
[2020-04-15] MEDS: MIDAZOLAM DRIP 50 mg/50mL 50 ML IV SCH (21:00)
[2020-04-16] VITALS (94 sets, daily range): BP systolic 82–156; BP diastolic 41–71
[2020-04-16] MEDS: NOREPINEPHRINE 8 MG/250ML KIT 250 ML IV SCH (05:00)
[2020-04-16] MEDS: PHENYLEPHRINE IV 250 ML IV SCH ×2 (05:45→10:47)
[2020-04-16] MEDS: FUROSEMIDE 20 MG/2 ML VIAL IV SCH (10:00)
[2020-04-16] MEDS: ENOXAPARIN SOD 40 MG/0.4 ML SYRINGE SC SCH ×2 (10:00→20:29)
[2020-04-16] MEDS: DexAMETHasone SOD PHOS 4 MG/1ML SDV INJ IV SCH (10:00)
[2020-04-16] MEDS: CHOLECALCIFEROL (VITD3) 2,000 UNIT CAP/TAB PO SCH (10:00)
[2020-04-16] MEDS: SODIUM CHLOR 0.9% PF (SALINE LOCK) 10ML VIAL/SYR IV SCH ×2 (10:00→20:28)
[2020-04-16] MEDS: PANTOPRAZOLE 40 MG/10 ML VIAL INJ IV SCH ×2 (10:00→20:28)
[2020-04-16] MEDS: PROPOFOL 100 ML IV SCH (10:43)
[2020-04-16] MEDS: ATRACURIUM BESYLATE 1,000 MG in D5W 5% 150 ML IV SCH (10:46)
[2020-04-16] MEDS: VASOPRESSIN 50 UNITS in D5W 5% 247.5 ML IV SCH (10:47)
[2020-04-16] MEDS: EPINEPHrine HCL 250 ML IV SCH (10:47)
[2020-04-16] MEDS: MIDAZOLAM DRIP 50 mg/50mL 50 ML IV SCH (15:24)
[2020-04-17] VITALS (102 sets, daily range): BP systolic 75–154; BP diastolic 42–83
[2020-04-17] MEDS: NOREPINEPHRINE 8 MG/250ML KIT 250 ML IV SCH (05:00)
[2020-04-17] MEDS: CHOLECALCIFEROL (VITD3) 2,000 UNIT CAP/TAB PO SCH (10:00)
[2020-04-17] MEDS: SODIUM CHLOR 0.9% PF (SALINE LOCK) 10ML VIAL/SYR IV SCH ×2 (10:00→20:24)
[2020-04-17] MEDS: DexAMETHasone SOD PHOS 4 MG/1ML SDV INJ IV SCH (10:00)
[2020-04-17] MEDS: ENOXAPARIN SOD 40 MG/0.4 ML SYRINGE SC SCH ×2 (10:00→20:24)
[2020-04-17] MEDS: PANTOPRAZOLE 40 MG/10 ML VIAL INJ IV SCH ×2 (10:00→20:23)
[2020-04-17] MEDS: PROPOFOL 100 ML IV SCH (10:33)
[2020-04-17] MEDS: fentaNYL Drip 2500mCg/250mlNS 250 ML IV SCH (12:08)
[2020-04-17] MEDS: MIDAZOLAM DRIP 50 mg/50mL 50 ML IV SCH ×2 (15:15→20:26)
[2020-04-17 16:17] LABS: Basophils # (auto) 0.1 10 ^3/uL (0-0.2); Basophils % (auto) 0.5 % (0.0-2.0); Eosinophils # (auto) 0.2 10 ^3/uL (0-0.8); Eosinophils % (auto) 1.5 % (0.0-7.0); Hematocrit 27.3 % (36.0-46.0); Hemoglobin 9.2 g/dL (12.2-16.2); Lymphocytes # (auto) 1.1 10 ^3/uL (0.4-5.4); Lymphocytes % (auto) 8.9 % (10.0-50.0); Mean Corpuscular Hemoglobin 32.3 pg (28.0-32.0); Mean Corpuscular Hgb Conc. 33.6 g/dL (32.0-36.0); Mean Corpuscular Volume 96.2 fL (80.0-100.0); Monocytes # (auto) 0.5 10 ^3/uL (0-1.3); Monocytes % (auto) 4.3 % (0.0-12.0); Neutrophils % (auto) 84.8 % (37.0-80.0); Nucleated Red Blood Cells % 6.7 %; Platelet Count (auto) 303 10^3/uL (140-450); Red Blood Cells 2.83 10^6/uL (4.0-5.20); Red Cell Distribution Width 15.4 % (11.8-14.3); White Blood Cell 11.8 10^3/uL (4.4-10.8)
[2020-04-17 16:30] LABS: Albumin 2.1 g/dL (3.4-5.0); BUN/Creatinine Ratio 27.1; Calcium 8.1 mg/dL (8.5-10.1); Magnesium 1.6 mg/dL (1.6-2.6)
[2020-04-17 16:33] LABS: Bilirubin, Total 0.7 mg/dL (0.2-1.0); Phosphorus 3.5 mg/dL (2.5-4.90); Total Protein 5.2 g/dL (6.4-8.2)
[2020-04-17 16:46] LABS: Potassium 2.8 mmol/L (3.5-5.1)
[2020-04-17] MEDS: POTASSIUM CHL 20MEQ/100ML 100 ML IV SCH ×3 (17:15→22:11)
[2020-04-17 17:20] LABS: CRP High Sensitivity 6.22 mg/dL (< 0.3)
[2020-04-17] MEDS: MAGNESIUM SULFATE 1GM/100ML 100 ML IV SCH ×2 (18:24→18:58)
[2020-04-18] VITALS (101 sets, daily range): BP systolic 80–137; BP diastolic 42–73
[2020-04-18] MEDS: fentaNYL Drip 2500mCg/250mlNS 250 ML IV SCH ×2 (04:53→17:54)
[2020-04-18] MEDS: NOREPINEPHRINE 8 MG/250ML KIT 250 ML IV SCH (05:00)
[2020-04-18 09:51] LABS: Albumin 2.1 g/dL (3.4-5.0); Calcium 7.8 mg/dL (8.5-10.1); Potassium 3.7 mmol/L (3.5-5.1)
[2020-04-18 09:54] LABS: Bilirubin, Total 0.5 mg/dL (0.2-1.0); Total Protein 5.2 g/dL (6.4-8.2)
[2020-04-18] MEDS: PANTOPRAZOLE 40 MG/10 ML VIAL INJ IV SCH ×2 (09:59→21:36)
[2020-04-18] MEDS: CHOLECALCIFEROL (VITD3) 2,000 UNIT CAP/TAB PO SCH (09:59)
[2020-04-18] MEDS: SODIUM CHLOR 0.9% PF (SALINE LOCK) 10ML VIAL/SYR IV SCH ×2 (09:59→21:36)
[2020-04-18] MEDS: ENOXAPARIN SOD 40 MG/0.4 ML SYRINGE SC SCH ×2 (09:59→21:37)
[2020-04-18] MEDS: DexAMETHasone SOD PHOS 4 MG/1ML SDV INJ IV SCH (09:59)
[2020-04-18 10:18] LABS: Basophils # (auto) 0.1 10 ^3/uL (0-0.2); Basophils % (auto) 0.8 % (0.0-2.0); Eosinophils # (auto) 0.3 10 ^3/uL (0-0.8); Eosinophils % (auto) 2.2 % (0.0-7.0); Lymphocytes # (auto) 1.3 10 ^3/uL (0.4-5.4); Mean Corpuscular Hemoglobin 33.3 pg (28.0-32.0); Mean Corpuscular Hgb Conc. 34.3 g/dL (32.0-36.0); Mean Corpuscular Volume 97.1 fL (80.0-100.0); Monocytes # (auto) 0.7 10 ^3/uL (0-1.3); Monocytes % (auto) 5.1 % (0.0-12.0); Neutrophils # (auto) 10.5 10 ^3/uL (1.6-8.6); Neutrophils % (auto) 81.9 % (37.0-80.0); Platelet Count (auto) 362 10^3/uL (140-450); Red Blood Cells 2.99 10^6/uL (4.0-5.20); Red Cell Distribution Width 15.9 % (11.8-14.3); White Blood Cell 12.9 10^3/uL (4.4-10.8)
[2020-04-18] MEDS: PROPOFOL 100 ML IV SCH (11:00)
[2020-04-18] MEDS: MIDAZOLAM DRIP 50 mg/50mL 50 ML IV SCH ×2 (14:39→17:09)
[2020-04-18] MEDS ORDERED: NOREPINEPHRINE BITARTRATE 2 ML IV ONE (21:03)
[2020-04-18] MEDS ORDERED: NOREPINEPHRINE 8 MG/250ML KIT 250 ML IV ONE (21:04)
[2020-04-19] VITALS (95 sets, daily range): BP systolic 96–196; BP diastolic 48–76
[2020-04-19 04:00] LABS: Basophils # (auto) 0 10 ^3/uL (0-0.2); Basophils % (auto) 0.3 % (0.0-2.0); Eosinophils # (auto) 0 10 ^3/uL (0-0.8); Eosinophils % (auto) 0.4 % (0.0-7.0); Hematocrit 27.3 % (36.0-46.0); Hemoglobin 9.3 g/dL (12.2-16.2); Lymphocytes # (auto) 1.6 10 ^3/uL (0.4-5.4); Mean Corpuscular Hemoglobin 32.6 pg (28.0-32.0); Monocytes # (auto) 0.5 10 ^3/uL (0-1.3); Monocytes % (auto) 4.8 % (0.0-12.0); Neutrophils # (auto) 8.9 10 ^3/uL (1.6-8.6); Neutrophils % (auto) 80.5 % (37.0-80.0); Platelet Count (auto) 358 10^3/uL (140-450); Red Blood Cells 2.84 10^6/uL (4.0-5.20); Red Cell Distribution Width 15.6 % (11.8-14.3); White Blood Cell 11.1 10^3/uL (4.4-10.8)
[2020-04-19] MEDS: NOREPINEPHRINE 8 MG/250ML KIT 250 ML IV SCH (04:17)
[2020-04-19 04:18] LABS: Potassium 3.9 mmol/L (3.5-5.1)
[2020-04-19 04:22] LABS: Albumin 2.1 g/dL (3.4-5.0); Calcium 8.3 mg/dL (8.5-10.1)
[2020-04-19 04:25] LABS: Bilirubin, Total 0.5 mg/dL (0.2-1.0); Total Protein 5.6 g/dL (6.4-8.2)
[2020-04-19] MEDS: PANTOPRAZOLE 40 MG/10 ML VIAL INJ IV SCH ×2 (09:41→21:17)
[2020-04-19] MEDS: CHOLECALCIFEROL (VITD3) 2,000 UNIT CAP/TAB PO SCH (09:41)
[2020-04-19] MEDS: ENOXAPARIN SOD 40 MG/0.4 ML SYRINGE SC SCH ×2 (09:41→21:16)
[2020-04-19] MEDS: DexAMETHasone SOD PHOS 4 MG/1ML SDV INJ IV SCH (09:41)
[2020-04-19] MEDS: SODIUM CHLOR 0.9% PF (SALINE LOCK) 10ML VIAL/SYR IV SCH ×2 (09:41→21:16)
[2020-04-19] MEDS: PROPOFOL 100 ML IV SCH (09:42)
[2020-04-19 15:56] LABS: INR 1.15 (0.9-1.15); Partial Thromboplastin Time 25.7 sec (23.0-31.2)
[2020-04-19] MEDS: MIDAZOLAM DRIP 50 mg/50mL 50 ML IV SCH (19:06)
[2020-04-20] VITALS (95 sets, daily range): BP systolic 97–173; BP diastolic 40–80
[2020-04-20 03:13] LABS: Basophils # (auto) 0 10 ^3/uL (0-0.2); Basophils % (auto) 0.4 % (0.0-2.0); Eosinophils # (auto) 0 10 ^3/uL (0-0.8); Hematocrit 25.8 % (36.0-46.0); Hemoglobin 8.7 g/dL (12.2-16.2); Lymphocytes # (auto) 1.3 10 ^3/uL (0.4-5.4); Mean Corpuscular Hemoglobin 32.6 pg (28.0-32.0); Mean Corpuscular Hgb Conc. 33.9 g/dL (32.0-36.0); Mean Corpuscular Volume 96.1 fL (80.0-100.0); Monocytes # (auto) 0.5 10 ^3/uL (0-1.3); Neutrophils # (auto) 6.9 10 ^3/uL (1.6-8.6); Neutrophils % (auto) 78.6 % (37.0-80.0); Platelet Count (auto) 318 10^3/uL (140-450); Red Blood Cells 2.68 10^6/uL (4.0-5.20); Red Cell Distribution Width 15.6 % (11.8-14.3); White Blood Cell 8.7 10^3/uL (4.4-10.8)
[2020-04-20 03:29] LABS: INR 1.15 (0.9-1.15); Partial Thromboplastin Time 22.6 sec (23.0-31.2)
[2020-04-20 03:31] LABS: BUN/Creatinine Ratio 28.9; Calcium 8.2 mg/dL (8.5-10.1)
[2020-04-20 03:34] LABS: Bilirubin, Total 0.4 mg/dL (0.2-1.0); Total Protein 5.3 g/dL (6.4-8.2)
[2020-04-20] MEDS: NOREPINEPHRINE 8 MG/250ML KIT 250 ML IV SCH (05:00)
[2020-04-20] MEDS: DexAMETHasone SOD PHOS 4 MG/1ML SDV INJ IV SCH (08:35)
[2020-04-20] MEDS: SODIUM CHLOR 0.9% PF (SALINE LOCK) 10ML VIAL/SYR IV SCH ×2 (08:35→21:17)
[2020-04-20] MEDS: ENOXAPARIN SOD 40 MG/0.4 ML SYRINGE SC SCH ×2 (08:35→21:19)
[2020-04-20] MEDS: PANTOPRAZOLE 40 MG/10 ML VIAL INJ IV SCH ×2 (08:35→21:19)
[2020-04-20] MEDS: CHOLECALCIFEROL (VITD3) 2,000 UNIT CAP/TAB PO SCH (08:35)
[2020-04-20] MEDS: PROPOFOL 100 ML IV SCH (10:44)
[2020-04-20] MEDS: fentaNYL Drip 2500mCg/250mlNS 250 ML IV SCH ×2 (10:44→17:37)
[2020-04-20] MEDS ORDERED: LIDOCAINE W/ EPINEPHRINE 1% 20ML VIAL ONE (13:05)
[2020-04-20] MEDS ORDERED: MIDAZOLAM DRIP 50 mg/50mL 50 ML IV ONE (14:21)
[2020-04-20] MEDS ORDERED: ceFAZolin 1GM/50ML 50 ML IV ONE (14:22)
[2020-04-20] MEDS ORDERED: ROCURONIUM 10MG/ML 10ML VIAL IV ONE (14:22)
[2020-04-21] VITALS (106 sets, daily range): BP systolic 113–170; BP diastolic 49–88
[2020-04-21 02:40] LABS: Basophils # (auto) 0.1 10 ^3/uL (0-0.2); Basophils % (auto) 0.8 % (0.0-2.0); Eosinophils # (auto) 0 10 ^3/uL (0-0.8); Hematocrit 26.1 % (36.0-46.0); Lymphocytes # (auto) 1.5 10 ^3/uL (0.4-5.4); Lymphocytes % (auto) 15.5 % (10.0-50.0); Mean Corpuscular Hemoglobin 32.7 pg (28.0-32.0); Mean Corpuscular Hgb Conc. 34.4 g/dL (32.0-36.0); Mean Corpuscular Volume 95.2 fL (80.0-100.0); Monocytes # (auto) 0.6 10 ^3/uL (0-1.3); Monocytes % (auto) 6.1 % (0.0-12.0); Neutrophils # (auto) 7.5 10 ^3/uL (1.6-8.6); Neutrophils % (auto) 77.6 % (37.0-80.0); Nucleated Red Blood Cells % 0.1 %; Platelet Count (auto) 331 10^3/uL (140-450); Red Blood Cells 2.74 10^6/uL (4.0-5.20); Red Cell Distribution Width 15.6 % (11.8-14.3); White Blood Cell 9.7 10^3/uL (4.4-10.8)
[2020-04-21 02:59] LABS: Albumin 2.2 g/dL (3.4-5.0); BUN/Creatinine Ratio 34.1; Calcium 8.4 mg/dL (8.5-10.1); Potassium 3.8 mmol/L (3.5-5.1)
[2020-04-21 03:01] LABS: Bilirubin, Total 0.4 mg/dL (0.2-1.0); Total Protein 5.6 g/dL (6.4-8.2)
[2020-04-21] MEDS: NOREPINEPHRINE 8 MG/250ML KIT 250 ML IV SCH (04:10)
[2020-04-21] MEDS: DexAMETHasone SOD PHOS 4 MG/1ML SDV INJ IV SCH (09:39)
[2020-04-21] MEDS: PANTOPRAZOLE 40 MG/10 ML VIAL INJ IV SCH ×2 (09:40→21:22)
[2020-04-21] MEDS: SODIUM CHLOR 0.9% PF (SALINE LOCK) 10ML VIAL/SYR IV SCH ×2 (09:40→21:22)
[2020-04-21] MEDS: CHOLECALCIFEROL (VITD3) 2,000 UNIT CAP/TAB PO SCH (09:40)
[2020-04-21] MEDS: ENOXAPARIN SOD 40 MG/0.4 ML SYRINGE SC SCH ×2 (09:41→21:22)
[2020-04-21] MEDS: PROPOFOL 100 ML IV SCH ×2 (09:42→23:30)
[2020-04-21] MEDS: MIDAZOLAM DRIP 50 mg/50mL 50 ML IV SCH ×2 (15:00→17:21)
[2020-04-21] MEDS ORDERED: SODIUM CHLORIDE 0.9% 500 ML IV ONE (18:30)
[2020-04-21] MEDS: LORazepam 2MG/ML-1ML VIAL IV PRN ×2 (19:00→22:48)
[2020-04-21] MEDS: SODIUM CHLORIDE 0.9% 1,000 ML IV SCH (19:00)
[2020-04-21] MEDS ORDERED: fentaNYL Drip 2500mCg/250mlNS 250 ML IV ONE (19:42)
[2020-04-21] MEDS: fentaNYL Drip 2500mCg/250mlNS 250 ML IV SCH (19:45)
[2020-04-22] VITALS (100 sets, daily range): BP systolic 86–126; BP diastolic 43–71
[2020-04-22 03:04] LABS: Basophils # (auto) 0.1 10 ^3/uL (0-0.2); Eosinophils # (auto) 0 10 ^3/uL (0-0.8); Eosinophils % (auto) 0.2 % (0.0-7.0); Hemoglobin 9.6 g/dL (12.2-16.2); Monocytes # (auto) 0.8 10 ^3/uL (0-1.3); Monocytes % (auto) 6.1 % (0.0-12.0); Neutrophils % (auto) 76.8 % (37.0-80.0)
[2020-04-22 03:06] LABS: Basophils % (auto) 0.6 % (0.0-2.0); Hematocrit 27.4 % (36.0-46.0); Lymphocytes % (auto) 16.3 % (10.0-50.0); Mean Corpuscular Hemoglobin 33.6 pg (28.0-32.0); Neutrophils # (auto) 9.7 10 ^3/uL (1.6-8.6); Nucleated Red Blood Cells % 0.1 %; Platelet Count (auto) 460 10^3/uL (140-450); Red Blood Cells 2.85 10^6/uL (4.0-5.20); Red Cell Distribution Width 16.1 % (11.8-14.3); White Blood Cell 12.6 10^3/uL (4.4-10.8)
[2020-04-22 03:22] LABS: Albumin 2.3 g/dL (3.4-5.0); BUN/Creatinine Ratio 26.2; Potassium 3.8 mmol/L (3.5-5.1)
[2020-04-22 03:25] LABS: Bilirubin, Total 0.4 mg/dL (0.2-1.0); Total Protein 5.6 g/dL (6.4-8.2)
[2020-04-22] MEDS: NOREPINEPHRINE 8 MG/250ML KIT 250 ML IV SCH (05:00)
[2020-04-22] MEDS: SODIUM CHLORIDE 0.9% 1,000 ML IV SCH ×2 (07:50→21:30)
[2020-04-22] MEDS: PANTOPRAZOLE 40 MG/10 ML VIAL INJ IV SCH ×2 (08:02→21:52)
[2020-04-22] MEDS: DexAMETHasone SOD PHOS 4 MG/1ML SDV INJ IV SCH (08:02)
[2020-04-22] MEDS: CHOLECALCIFEROL (VITD3) 2,000 UNIT CAP/TAB PO SCH (08:03)
[2020-04-22] MEDS: SODIUM CHLOR 0.9% PF (SALINE LOCK) 10ML VIAL/SYR IV SCH ×2 (08:03→21:52)
[2020-04-22] MEDS: ENOXAPARIN SOD 40 MG/0.4 ML SYRINGE SC SCH ×2 (08:04→21:52)
[2020-04-22] MEDS: PROPOFOL 100 ML IV SCH ×2 (13:29→19:22)
[2020-04-23] VITALS (69 sets, daily range): BP systolic 89–152; BP diastolic 43–74
[2020-04-23] MEDS: PROPOFOL 100 ML IV SCH ×3 (00:32→21:23)
[2020-04-23] MEDS: fentaNYL Drip 2500mCg/250mlNS 250 ML IV SCH ×2 (04:53→21:50)
[2020-04-23] MEDS: NOREPINEPHRINE 8 MG/250ML KIT 250 ML IV SCH (04:54)
[2020-04-23] MEDS: Jevity 1.2 Cal/Fiber 1 Liter GT SCH (05:55)
[2020-04-23] MEDS: DexAMETHasone SOD PHOS 4 MG/1ML SDV INJ IV SCH (10:06)
[2020-04-23] MEDS: ENOXAPARIN SOD 40 MG/0.4 ML SYRINGE SC SCH ×2 (10:07→21:21)
[2020-04-23] MEDS: PANTOPRAZOLE 40 MG/10 ML VIAL INJ IV SCH ×2 (10:07→21:20)
[2020-04-23] MEDS: CHOLECALCIFEROL (VITD3) 2,000 UNIT CAP/TAB PO SCH (10:07)
[2020-04-23] MEDS: LORazepam 2MG/ML-1ML VIAL IV PRN (23:57)
[2020-04-24] VITALS (103 sets, daily range): BP systolic 80–135; BP diastolic 42–61
[2020-04-24] MEDS: NOREPINEPHRINE 8 MG/250ML KIT 250 ML IV SCH (06:03)
[2020-04-24] MEDS: PANTOPRAZOLE 40 MG/10 ML VIAL INJ IV SCH ×2 (10:00→21:39)
[2020-04-24] MEDS: ENOXAPARIN SOD 40 MG/0.4 ML SYRINGE SC SCH ×2 (10:00→21:39)
[2020-04-24] MEDS: CHOLECALCIFEROL (VITD3) 2,000 UNIT CAP/TAB PO SCH (10:00)
[2020-04-24] MEDS: fentaNYL Drip 2500mCg/250mlNS 250 ML IV SCH ×2 (11:14→22:00)
[2020-04-24] MEDS: PROPOFOL 100 ML IV SCH ×2 (17:30→22:14)
[2020-04-25] VITALS (80 sets, daily range): BP systolic 89–132; BP diastolic 37–63
[2020-04-25] MEDS: PROPOFOL 100 ML IV SCH ×4 (04:00→21:12)
[2020-04-25] MEDS: NOREPINEPHRINE 8 MG/250ML KIT 250 ML IV SCH (05:00)
[2020-04-25] MEDS: PANTOPRAZOLE 40 MG/10 ML VIAL INJ IV SCH ×2 (10:00→22:28)
[2020-04-25] MEDS: CHOLECALCIFEROL (VITD3) 2,000 UNIT CAP/TAB PO SCH (10:00)
[2020-04-25] MEDS: ENOXAPARIN SOD 40 MG/0.4 ML SYRINGE SC SCH (10:00)
[2020-04-25 15:00] LABS: Basophils # (auto) 0.1 10 ^3/uL (0-0.2); Basophils % (auto) 0.6 % (0.0-2.0); Eosinophils # (auto) 1.1 10 ^3/uL (0-0.8); Eosinophils % (auto) 8.3 % (0.0-7.0); Hematocrit 28.3 % (36.0-46.0); Hemoglobin 9.4 g/dL (12.2-16.2); Lymphocytes # (auto) 1.7 10 ^3/uL (0.4-5.4); Lymphocytes % (auto) 13.1 % (10.0-50.0); Mean Corpuscular Hemoglobin 32.5 pg (28.0-32.0); Mean Corpuscular Hgb Conc. 33.4 g/dL (32.0-36.0); Mean Corpuscular Volume 97.3 fL (80.0-100.0); Monocytes # (auto) 0.5 10 ^3/uL (0-1.3); Monocytes % (auto) 4.1 % (0.0-12.0); Neutrophils # (auto) 9.7 10 ^3/uL (1.6-8.6); Neutrophils % (auto) 73.9 % (37.0-80.0); Nucleated Red Blood Cells % 0.1 %; Platelet Count (auto) 364 10^3/uL (140-450); Red Blood Cells 2.91 10^6/uL (4.0-5.20); Red Cell Distribution Width 16.4 % (11.8-14.3); White Blood Cell 13.2 10^3/uL (4.4-10.8)
[2020-04-25 15:14] LABS: Albumin 1.8 g/dL (3.4-5.0); BUN/Creatinine Ratio 9.5; Magnesium 1.5 mg/dL (1.6-2.6); Potassium 3.3 mmol/L (3.5-5.1)
[2020-04-25 15:16] LABS: Bilirubin, Total 0.6 mg/dL (0.2-1.0); Total Protein 5.6 g/dL (6.4-8.2)
[2020-04-25] MEDS ORDERED: AMIODARONE HCL 150 MG in D5W 5% 100 ML IV ONE (16:00)
[2020-04-25] MEDS ORDERED: DIGOXIN (250MCG/ML) 2 ML AMPULE IV ONE ×2 (16:00→17:45)
[2020-04-25] MEDS ORDERED: AMIODARONE HCL (50 MG/ ML) 3 ML VIAL IV ONE (16:01)
[2020-04-25] MEDS ORDERED: cefTRIAXone 1GM/50ML D5W 50 ML IV ONE (16:15)
[2020-04-25] MEDS ORDERED: AMIODARONE 450mg/250ml AE 250 ML IV SCH (16:15)
[2020-04-25] MEDS: PHENYLEPHRINE IV 250 ML IV SCH ×2 (16:21→21:00)
[2020-04-25] MEDS: POTASSIUM CHL 20MEQ/100ML 100 ML IV SCH ×2 (16:26→20:00)
[2020-04-25] MEDS: Ensure HIGH Protein Vanilla 8oz Bottle PO SCH (18:00)
[2020-04-25] MEDS: fentaNYL Drip 2500mCg/250mlNS 250 ML IV SCH (20:50)
[2020-04-25] MEDS: ENOXAPARIN SOD 80 MG/0.8ML SYRINGE SC SCH (22:00)
[2020-04-25] MEDS: MAGNESIUM SULFATE 1GM/100ML 100 ML IV SCH (22:00)
[2020-04-25] MEDS: DOXYCYCLINE 100 MG TAB/CAP GT SCH (22:28)
[2020-04-25] MEDS: AMIODARONE 450mg/250ml AE 250 ML IV SCH (22:29)
[2020-04-25] MEDS: AMIODARONE HCL 200 MG TAB PO SCH (22:29)
[2020-04-26] VITALS (66 sets, daily range): BP systolic 77–154; BP diastolic 31–52
[2020-04-26] MEDS: AMIODARONE 450mg/250ml AE 250 ML IV SCH (01:00)
[2020-04-26] MEDS: PROPOFOL 100 ML IV SCH ×3 (03:00→23:16)
[2020-04-26] MEDS: PHENYLEPHRINE IV 250 ML IV SCH ×3 (03:00→20:26)
[2020-04-26] MEDS: NOREPINEPHRINE 8 MG/250ML KIT 250 ML IV SCH (05:00)
[2020-04-26] MEDS: Ensure HIGH Protein Vanilla 8oz Bottle PO SCH ×3 (07:46→18:00)
[2020-04-26] MEDS: AMIODARONE HCL 200 MG TAB PO SCH ×2 (09:30→22:00)
[2020-04-26] MEDS: CHOLECALCIFEROL (VITD3) 2,000 UNIT CAP/TAB PO SCH (09:30)
[2020-04-26] MEDS: ENOXAPARIN SOD 80 MG/0.8ML SYRINGE SC SCH ×2 (09:30→22:00)
[2020-04-26] MEDS: DIGOXIN 0.125 MG TAB PO SCH (09:30)
[2020-04-26] MEDS: PANTOPRAZOLE 40 MG/10 ML VIAL INJ IV SCH ×2 (09:30→22:00)
[2020-04-26] MEDS: DOXYCYCLINE 100 MG TAB/CAP GT SCH ×2 (09:30→22:00)
[2020-04-26 09:36] LABS: Basophils # (auto) 0.1 10 ^3/uL (0-0.2); Basophils % (auto) 0.6 % (0.0-2.0); Eosinophils # (auto) 0.6 10 ^3/uL (0-0.8); Eosinophils % (auto) 4.1 % (0.0-7.0); Hematocrit 31.1 % (36.0-46.0); Hemoglobin 9.9 g/dL (12.2-16.2); Lymphocytes # (auto) 1.4 10 ^3/uL (0.4-5.4); Lymphocytes % (auto) 8.8 % (10.0-50.0); Mean Corpuscular Volume 99.9 fL (80.0-100.0); Monocytes # (auto) 0.9 10 ^3/uL (0-1.3); Monocytes % (auto) 5.9 % (0.0-12.0); Neutrophils # (auto) 12.6 10 ^3/uL (1.6-8.6); Neutrophils % (auto) 80.6 % (37.0-80.0); Nucleated Red Blood Cells % 0.2 %; Platelet Count (auto) 435 10^3/uL (140-450); Red Blood Cells 3.11 10^6/uL (4.0-5.20); White Blood Cell 15.7 10^3/uL (4.4-10.8)
[2020-04-26 09:54] LABS: BUN/Creatinine Ratio 7.9; Calcium 8.2 mg/dL (8.5-10.1); Magnesium 1.8 mg/dL (1.6-2.6); Potassium 4.6 mmol/L (3.5-5.1)
[2020-04-26] MEDS: MAGNESIUM SULFATE 1GM/100ML 100 ML IV SCH ×2 (17:24→19:39)
[2020-04-26] MEDS: MEROPENEM 1GM IVPB 100 ML IV SCH (20:00)
[2020-04-26] MEDS ORDERED: cefTRIAXone 1GM/50ML D5W 50 ML IV SCH (21:00)
[2020-04-26] MEDS ORDERED: MEROPENEM 1GM IVPB 100 ML IV SCH (22:00)
[2020-04-26] MEDS: LINEZOLID 600MG/300ML 300 ML IV SCH (22:00)
[2020-04-27] VITALS (88 sets, daily range): BP systolic 83–152; BP diastolic 10–74
[2020-04-27] MEDS: PHENYLEPHRINE IV 250 ML IV SCH ×3 (03:05→14:00)
[2020-04-27] MEDS: MEROPENEM 1GM IVPB 100 ML IV SCH ×3 (03:58→17:56)
[2020-04-27] MEDS: fentaNYL Drip 2500mCg/250mlNS 250 ML IV SCH ×2 (03:59→17:59)
[2020-04-27] MEDS: PROPOFOL 100 ML IV SCH ×3 (04:31→15:11)
[2020-04-27] MEDS: NOREPINEPHRINE 8 MG/250ML KIT 250 ML IV SCH ×2 (05:00→19:02)
[2020-04-27 07:05] LABS: Basophils # (auto) 0.1 10 ^3/uL (0-0.2); Basophils % (auto) 0.6 % (0.0-2.0); Eosinophils # (auto) 0.1 10 ^3/uL (0-0.8); Eosinophils % (auto) 0.8 % (0.0-7.0); Hematocrit 32.3 % (36.0-46.0); Hemoglobin 10.4 g/dL (12.2-16.2); Lymphocytes # (auto) 2.1 10 ^3/uL (0.4-5.4); Lymphocytes % (auto) 13.1 % (10.0-50.0); Mean Corpuscular Hemoglobin 32.2 pg (28.0-32.0); Mean Corpuscular Hgb Conc. 32.3 g/dL (32.0-36.0); Mean Corpuscular Volume 99.5 fL (80.0-100.0); Monocytes % (auto) 6.2 % (0.0-12.0); Neutrophils % (auto) 79.3 % (37.0-80.0); Nucleated Red Blood Cells % 2.2 %; Platelet Count (auto) 426 10^3/uL (140-450); Red Blood Cells 3.24 10^6/uL (4.0-5.20); White Blood Cell 16.4 10^3/uL (4.4-10.8)
[2020-04-27 07:29] LABS: BUN/Creatinine Ratio 6.8; Calcium 8.1 mg/dL (8.5-10.1)
[2020-04-27] MEDS: Ensure HIGH Protein Vanilla 8oz Bottle PO SCH ×3 (08:00→17:48)
[2020-04-27] MEDS: DIGOXIN 0.125 MG TAB PO SCH (08:29)
[2020-04-27] MEDS: PANTOPRAZOLE 40 MG/10 ML VIAL INJ IV SCH ×2 (09:11→22:01)
[2020-04-27] MEDS: LINEZOLID 600MG/300ML 300 ML IV SCH ×2 (09:11→22:01)
[2020-04-27] MEDS: ENOXAPARIN SOD 80 MG/0.8ML SYRINGE SC SCH ×2 (09:12→22:01)
[2020-04-27] MEDS: AMIODARONE HCL 200 MG TAB PO SCH ×2 (09:12→22:01)
[2020-04-27] MEDS: CHOLECALCIFEROL (VITD3) 2,000 UNIT CAP/TAB PO SCH (09:12)
[2020-04-27] MEDS ORDERED: FUROSEMIDE 40 MG/4 ML VIAL IV ONE (10:00)
[2020-04-27] MEDS ORDERED: SODIUM BICARBONATE 8.4 % INJ 50ML VIAL IV ONE (10:00)
[2020-04-27] MEDS ORDERED: FUROSEMIDE 40 MG/4 ML VIAL ONE (10:18)
[2020-04-27] MEDS: METOCLOPRAMIDE HCL 5MG/ml INJ 2ml VIAL IV SCH ×2 (10:45→22:01)
[2020-04-27] MEDS: FUROSEMIDE 40 MG/4 ML VIAL IV SCH (17:56)
[2020-04-27] MEDS ORDERED: NOREPINEPHRINE BITARTRATE 16 MG in SODIUM CHL 0.9% 234 ML IV SCH (19:30)
[2020-04-27] MEDS: PHENYLEPHRINE INJ 40 MG in SODIUM CHL 0.9% 246 ML IV SCH (22:30)
[2020-04-28] VITALS (45 sets, daily range): BP systolic 73–155; BP diastolic 16–107
[2020-04-28] MEDS: PHENYLEPHRINE INJ 40 MG in SODIUM CHL 0.9% 246 ML IV SCH (02:22)
[2020-04-28] MEDS: FUROSEMIDE 40 MG/4 ML VIAL IV SCH (05:00)
[2020-04-28] MEDS: MEROPENEM 1GM IVPB 100 ML IV SCH (06:00)
[2020-04-28] MEDS: METOCLOPRAMIDE HCL 5MG/ml INJ 2ml VIAL IV SCH (06:00)
[2020-04-28] MEDS: Ensure HIGH Protein Vanilla 8oz Bottle PO SCH ×2 (08:00→09:51)
[2020-04-28] MEDS ORDERED: SODIUM BICARBONATE 8.4 % INJ 50ML VIAL IV ONE ×2 (08:30→10:15)
[2020-04-28] MEDS ORDERED: VASOPRESSIN 50 UNITS in D5W 5% 247.5 ML IV SCH (08:30)
[2020-04-28] MEDS ORDERED: EPINEPHrine HCL 250 ML IV SCH (08:30)
[2020-04-28] MEDS ORDERED: SODIUM BICARBONATE 8.4% INJ 50ML SYRINGE ONE (08:31)
[2020-04-28 09:33] LABS: Hemoglobin 9.9 g/dL (12.2-16.2)
[2020-04-28 09:36] LABS: Hematocrit 30.3 % (36.0-46.0); Mean Corpuscular Hemoglobin 32.9 pg (28.0-32.0); Mean Corpuscular Hgb Conc. 32.8 g/dL (32.0-36.0); Mean Corpuscular Volume 100.3 fL (80.0-100.0); Platelet Count (auto) 351 10^3/uL (140-450); Red Blood Cells 3.02 10^6/uL (4.0-5.20); Red Cell Distribution Width 17.3 % (11.8-14.3)
[2020-04-28 09:40] LABS: Calcium 6.9 mg/dL (8.5-10.1)
[2020-04-28 09:42] LABS: BUN/Creatinine Ratio 7.7
[2020-04-28] MEDS: AMIODARONE HCL 200 MG TAB PO SCH (09:45)
[2020-04-28] MEDS: PANTOPRAZOLE 40 MG/10 ML VIAL INJ IV SCH (09:45)
[2020-04-28] MEDS: DIGOXIN 0.125 MG TAB PO SCH (09:49)
[2020-04-28] MEDS: CHOLECALCIFEROL (VITD3) 2,000 UNIT CAP/TAB PO SCH (09:49)
[2020-04-28 09:50] LABS: White Blood Cell 31.5 10^3/uL (4.4-10.8)
[2020-04-28] MEDS: ENOXAPARIN SOD 80 MG/0.8ML SYRINGE SC SCH (09:50)
[2020-04-28 09:51] LABS: Basophils % (manual) 0 (0.0-2.0); Blast Cells 0; Eosinophils % (manual) 0 (0-7); Promyelocytes % 0; Reactive Lymphocytes 0
[2020-04-28 09:58] LABS: Potassium 6.1 mmol/L (3.5-5.1)
[2020-04-28] MEDS ORDERED: CALCIUM GLUC 4.65meq/50ml D5AE 50 ML IV ONE (10:15)
[2020-04-28] MEDS ORDERED: SODIUM ZIRCONIUM CYCL 10 GM PAK PO ONE (10:15)
[2020-04-28] MEDS ORDERED: ALBUTEROL SULF 2.5 MG/0.5ML(0.5%) NEB SOLN NEB ONE (10:15)
[2020-04-28] MEDS ORDERED: SODIUM BICARBONATE 50ML VIAL 150 ML in D5W 5% 1,000 ML IV SCH (10:15)
[2020-04-28] MEDS: LINEZOLID 600MG/300ML 300 ML IV SCH (10:29)
[2020-04-28] MEDS ORDERED: LORazepam 2MG/ML-1ML VIAL IV PRN (13:00)
[2020-04-28] MEDS ORDERED: MORPHINE SULF INJ 2 MG/ML SYRINGE 1ML IV PRN (13:00)
[2020-04-28 13:13] LABS: Band Neutrophils % (manual) 28; Lymphocytes % (manual) 3 (10.0-50.0); Metamyelocytes % 6; Monocytes % (manual) 3 (0-12); Myelocytes % 1
[2020-04-28] MEDS ORDERED: SODIUM ZIRCONIUM CYCL 10 GM PAK PO SCH (14:00)
== END 2020-04-28 17:05 | DRG 4 ==
LOC: EDBD 11:14 → ER 11:14 → OVERFLOW 16:30 → TELE-EAST 03-08 18:59 → EAST 03-12 15:50 → TELE-E-ADS 03-13 06:22 → TELE-EAST 03-16 15:52 → TELE-E-ADS 03-22 08:51 → TELE-EAST 03-27 11:01 → ICU CENTRL 04-01 04:00 → DOU IN ICU 04-01 04:01
PROVIDERS: ADMIT Internal Medicine; ATTEND Internal Medicine Nephrology
PROC: XW13325 Transfusion of Convalescent Plasma (Nonautologous) into Peripheral Vein, Percutaneous Approach, New Technology Group 5 (ICD-10-PCS; principal; 2020-03-08)
PROC: XW033E5 Introduction of Remdesivir Anti-infective into Peripheral Vein, Percutaneous Approach, New Technology Group 5 (ICD-10-PCS; 2020-03-15)
PROC: 5A09357 Assistance with Respiratory Ventilation, Less than 24 Consecutive Hours, Continuous Positive Airway Pressure (ICD-10-PCS; 2020-03-22)
PROC: 02HV33Z Insertion of Infusion Device into Superior Vena Cava, Percutaneous Approach (ICD-10-PCS; 2020-03-23)
PROC: B548ZZA Ultrasonography of Superior Vena Cava, Guidance (ICD-10-PCS; 2020-03-23)
PROC: 5A09557 Assistance with Respiratory Ventilation, Greater than 96 Consecutive Hours, Continuous Positive Airway Pressure (ICD-10-PCS; 2020-03-23)
PROC: XW033H5 Introduction of Tocilizumab into Peripheral Vein, Percutaneous Approach, New Technology Group 5 (ICD-10-PCS; 2020-03-25)
PROC: 5A1955Z Respiratory Ventilation, Greater than 96 Consecutive Hours (ICD-10-PCS; 2020-04-01)
PROC: 0BH17EZ Insertion of Endotracheal Airway into Trachea, Via Natural or Artificial Opening (ICD-10-PCS; 2020-04-01)
PROC: 0B110F4 Bypass Trachea to Cutaneous with Tracheostomy Device, Open Approach (ICD-10-PCS; 2020-04-20)
PROC: 0DH63UZ Insertion of Feeding Device into Stomach, Percutaneous Approach (ICD-10-PCS; 2020-04-20)
DX: A41.89 Other specified sepsis (principal); U07.1 COVID-19; J12.82 Pneumonia due to coronavirus disease 2019; J96.01 Acute respiratory failure with hypoxia; R65.21 Severe sepsis with septic shock; N17.0 Acute kidney failure with tubular necrosis; E87.0 Hyperosmolality and hypernatremia; Z99.11 Dependence on respirator [ventilator] status; D68.59 Other primary thrombophilia; I10 Essential (primary) hypertension; R74.01 Elevation of levels of liver transaminase levels; D89.839 Cytokine release syndrome, grade unspecified; E87.5 Hyperkalemia; Z66 Do not resuscitate; E87.6 Hypokalemia; K29.70 Gastritis, unspecified, without bleeding; I48.91 Unspecified atrial fibrillation; E87.70 Fluid overload, unspecified; F41.9 Anxiety disorder, unspecified; Z87.891 Personal history of nicotine dependence
CPT/HCPCS: 36415; 36569; 36600; 43246; 71045; 80048; 80053; 81001; 82040; 82306; 82570; 82728; 82805; 82962; 83036; 83605; 83615; 83735; 83880; 84100; 84132; 84156; 84300; 84478; 84484; 85007; 85025; 85027; 85379; 85610; 85730; 86141; 86850; 86900; 86901; 87040; 87070; 87077; 87081; 87086; 87088; 87186; 87205; 87426; 93005; 93306; 93970; 94002; 94003; 94640; 94660; 96365; 96375; 97110; 97530; A4565; C9113; G0378; J0171; J0330; J0610; J0690; J0696; J1100; J1815; J1956; J2185; J2250; J2543; J2704; J3480; J3490; J7060